=== PATIENT | male | born 1975 | race Caucasian/White ===

== ENCOUNTER 2019-06-01 09:03 | Inpatient (IN) | payer OTHER ==
[2019-06-01] MEDS ORDERED: SODIUM CHLORIDE 0.9% 1000 ML INFUS.BAG IV ONE (09:31)
[2019-06-01] MEDS ORDERED: morphine CARPU-JECT 4 MG/1 ML DISP.SYRIN IVPUSH ONE (09:31)
[2019-06-01] MEDS ORDERED: ACETAMINOPHEN 1000 MG/100 ML VIAL (NON FORMULARY) IVPB ONE (09:31)
[2019-06-01] MEDS ORDERED: ONDANSETRON 4 MG/2 ML VIAL IVPUSH ONE (09:31)
[2019-06-01] MEDS ORDERED: FAMOTIDINE 20 MG/50 ML IVPB 20 MG/50 ML MG IVPB ONE ×2 (09:45→09:59)
[2019-06-01] MEDS ORDERED: ACETAMINOPHEN INJECTION 100 ML IVPB ONE (09:48)
[2019-06-01 09:55] LABS: BASO % 0.9 % (0-2.0); EOS % 3.8 % (0-4.5); HEMATOCRIT 47.1 % (35.4-49); HEMOGLOBIN 15.4 GM/dL (11.7-16.9); LYMPH % 13.3 % (8-40); MCH 27.8 pg (25.7-33.7); MCHC 32.7 g/dl (32.0-35.9); MEAN CELL VOLUME 84.8 fl (80-96); MEAN PLT VOLUME 8.4 fl (7.5-11.1); MONO % 9.2 % (3.8-10.2); NEUT % 72.8 % (42.8-82.8); PLATELET COUNT 396 K/MM3 (134-434); RBC 5.56 M/mm3 (4.00-5.60); RDW 14.6 % (11.9-15.9); WHITE BLOOD COUNT 18.4 K/mm3 (4.0-10.0)
[2019-06-01] MEDS ORDERED: morphine SULFATE 4 MG/ML VIAL ONE (09:59)
[2019-06-01] MEDS ORDERED: ONDANSETRON 4 MG/2 ML VIAL ONE (10:00)
[2019-06-01 10:03] LABS: URINE APPEARANCE CLEAR; URINE BILIRUBIN NEGATIVE (NEGATIVE); URINE COLOR YELLOW; URINE GLUCOSE (UA) NEGATIVE (NEGATIVE); URINE KETONE 1+ (NEGATIVE); URINE LEUK ESTERASE NEGATIVE (NEGATIVE); URINE NITRITE NEGATIVE (NEGATIVE); URINE PROTEIN TRACE (NEGATIVE); URINE UROBILINOGEN 0.2 mg/dL (0.2-1.0)
[2019-06-01 10:21] LABS: ALBUMIN 3.7 g/dl (3.4-5.0); BLOOD UREA NITROGEN 8.6 mg/dL (7-18); CALCIUM 9.3 mg/dL (8.5-10.1); CREATININE 0.9 mg/dL (0.55-1.3); POTASSIUM 4.4 mmol/L (3.5-5.1); TOT PROT 7.9 g/dl (6.4-8.2)
[2019-06-01] MEDS ORDERED: PIPERACILLIN/TAZOB 3.375 GM 3.375 GM in DEXTROSE 5%-WATER - 50 ML IVPB ONE (10:24)
[2019-06-01] MEDS ORDERED: LACTATED RINGERS SOLUTION 1000 ML INFUS.BAG IV ONE (10:25)
[2019-06-01] MEDS ORDERED: PIPERACILLIN/TAZOB 3.375 GM 3.375 GM/50 ML BAG IVPB ONE (10:27)
[2019-06-01 10:31] LABS: INR 1.28 (0.83-1.09); PROTHROMBIN TIME (PATIENT) 15.1 SEC (9.7-13.0)
--- NOTE | 2019-06-01 10:32 | PDOC ---
Documentation entered by Kayla Mcgregor SCRIBE, acting as scribe for Martita Ulloa DO. Martita Ulloa DO: This documentation has been prepared by the Balbir goff Brenda, SCRIBE, under my direction and personally reviewed by me in its entirety. I confirm that the documentation accurately reflects all work, treatment, procedures, and medical decision making performed by me. History of Present Illness - General Chief Complaint: Pain, Acute Stated Complaint: ABD PAIN Time Seen by Provider: 06/01/19 09:18 History Source: Patient Exam Limitations: No Limitations - History of Present Illness Initial Comments: 06/01/19 09:55 The patient is a 44 year old male, with a significant PMH of diverticulitis and NIDDM (stopped taking metformin due to better sugar levels) who presents to the emergency department with 3 days of lower abdominal pain that radiates to his back, which he states is a bout of diverticulitis. As per patient, he has experienced bouts of diverticulitis before, however this time the pain is more severe on the right lower quadrant and hasnt been relieved by a change of diet. He also endorses associative symptoms, such as diaphoresis, shivering and cold sweats, along with dysuria. He also notes notes that his last bowel movement was 3 days ago, he notes trying to take a suppository 2 days ago, but barely anything came out. As per patient, he normally had bouts of diverticulitis once every month, but recently has had it once every 2 months, he notes that his last episode he went to [facility], and was told to follow up with a huc ob but never did. Additionally he notes ending his course of antibiotics earlier than noted, due to alleviation of symptoms, when prescribed for his recent bout of diverticulitis. The patient denies chest pain, shortness of breath, headache and dizziness. Denies vomiting and diarrhea. Denies frequency, urgency and hematuria. Allergies: NKA Past surgical history: Unknown eye surgery Social history: Reports currently using smoking tobacco everyday, and marijuana use. Also notes alcohol use. Denies any other drug use. PCP: Dr. Erickson Lopez Past History - Past Medical History Allergies/Adverse Reactions: Allergies Allergy/AdvReac Type Severity Reaction Status Date / Time No Known Allergies Allergy Verified 06/01/19 09:12 Home Medications: Ambulatory Orders NK [No Known Home Medication] 06/01/19 COPD: No Diabetes: Yes Other medical history: diverticulitis - Immunization History Immunization Up to Date: No - Psycho Social/Smoking Cessation Hx Smoking History: Current every day smoker Have you smoked in the past 12 months: No Information on smoking cessation initiated: No Hx Alcohol Use: Yes Drug/Substance Use Hx: Yes Review of Systems - Review of Systems Able to Perform ROS?: Yes Comments:: 06/01/19 09:55 GENERAL/CONSTITUTIONAL: (+) Chills (+) Diaphoresis (+) Clamminess. No weakness. HEAD, EYES, EARS, NOSE AND THROAT: No change in vision. No ear pain or discharge. No sore throat. CARDIOVASCULAR: No chest pain or shortness of breath. RESPIRATORY: No cough, wheezing, or hemoptysis. GASTROINTESTINAL: (+) Lower abdominal pain,radiates to back. (+) Constipation. No vomiting, diarrhea. GENITOURINARY: (+) Dysuria. No frequency, or change in urination. MUSCULOSKELETAL: No joint or muscle swelling. No neck pain. SKIN: No rash NEUROLOGIC: No headache, vertigo, loss of consciousness, or change in strength/ sensation. ENDOCRINE: No increased thirst. No abnormal weight change. HEMATOLOGIC/LYMPHATIC: No anemia, easy bleeding, or history of blood clots. ALLERGIC/IMMUNOLOGIC: No hives or skin allergy. *Physical Exam - Vital Signs Last Vital Signs Temp Pulse Resp BP Pulse Ox 98.3 F 114 H 18 125/86 98 06/01/19 09:08 06/01/19 09:08 06/01/19 09:08 06/01/19 09:08 06/01/19 09:08 - Physical Exam Comments: 06/01/19 09:56 GENERAL: (+) Diaphoretic. (+) Clammy. Awake, alert, and fully oriented, in no acute distress HEAD: No signs of trauma EYES: PERRLA, EOMI, sclera anicteric, conjunctiva clear ENT: Auricles normal inspection, hearing grossly normal, nares patent, oropharynx clear without exudates. Moist mucosa NECK: Normal ROM, supple, no lymphadenopathy, JVD, or masses LUNGS: Breath sounds equal, clear to auscultation bilaterally. No wheezes, and no crackles HEART: (+) Tachycardic. Regular rate and rhythm, normal S1 and S2, no murmurs, rubs or gallops ABDOMEN: (+) Involuntary guarding on RLQ. (+) Tenderness to palpation on left lower quadrant.(+) Superpubic tenderness to palpation. Soft, normoactive bowel sounds. No rebound. No masses EXTREMITIES: Normal range of motion, no edema. No clubbing or cyanosis. No cords, erythema, or tenderness NEUROLOGICAL: Cranial nerves II through XII grossly intact. Normal speech, normal gait SKIN: Warm, Dry, normal turgor, no rashes or lesions noted. Heart Score/ECG Review - ECG Intrepretation Comment:: 06/01/19 10:30 sinus tach at 101, nl axis, nl interval, no acute st changes, t wave inversions III which are nonspecific ED Treatment Course - LABORATORY CBC & Chemistry Diagram: 06/01/19 09:38 06/01/19 09:38 - ADDITIONAL ORDERS Additional order review: Laboratory Results 06/01/19 06/01/19 06/01/19 09:38 09:38 09:35 Sodium 138 Potassium 4.4 Chloride 100 Carbon Dioxide 29 Anion Gap 9 BUN 8.6 Creatinine 0.9 Est GFR (CKD-EPI)AfAm 121.67 Est GFR (CKD-EPI)NonAf 104.98 Random Glucose 214 H Calcium 9.3 Magnesium 2.2 Total Bilirubin 1.0 AST 8 L ALT 19 Alkaline Phosphatase 64 Total Protein 7.9 Albumin 3.7 Urine Color Urine Appearance Urine pH Ur Specific [place] Urine Protein Urine Glucose (UA) Urine Ketones Urine Blood Urine Nitrite Urine Bilirubin Urine Urobilinogen Ur Leukocyte Esterase Stool Occult Blood Negative 06/01/19 09:35 Sodium Potassium Chloride Carbon Dioxide Anion Gap BUN Creatinine Est GFR (CKD-EPI)AfAm Est GFR (CKD-EPI)NonAf Random Glucose Calcium Magnesium Total Bilirubin AST ALT Alkaline Phosphatase Total Protein Albumin Urine Color Yellow Urine Appearance Clear Urine pH 6.0 Ur Specific [place] 1.015 Urine Protein Trace Urine Glucose (UA) Negative Urine Ketones 1+ H Urine Blood Negative Urine Nitrite Negative Urine Bilirubin Negative Urine Urobilinogen 0.2 Ur Leukocyte Esterase Negative Stool Occult Blood 06/01/19 09:38 RBC 5.56 MCV 84.8 MCHC 32.7 RDW 14.6 MPV 8.4 Neutrophils % 72.8 Lymphocytes % 13.3 Monocytes % 9.2 Eosinophils % 3.8 Basophils % 0.9 - RADIOLOGY Radiology Studies Ordered: Category Date Time Status ABDOMEN & PELVIS CT WITH CONTR [CT] Stat CT Scan 06/01/19 09:31 Ordered CHEST X-RAY PORTABLE* [RAD] Stat Radiology 06/01/19 09:31 Taken - Medications Given in the ED: ED Medications Discontinued Medications Generic Name Dose Route Start Last Admin Trade Name Freq PRN Reason Stop Dose Admin Acetaminophen 1,000 mg 06/01/19 09:31 06/01/19 10:04 Ofirmev Injection - IVPB 06/01/19 09:32 1,000 mg ONCE ONE Administration Famotidine/Sodium Chloride 20 mg in 50 mls @ 100 mls/hr 06/01/19 09:45 10:04 Pepcid 20 Mg Premixed Ivpb - IVPB 06/01/19 10:14 100 mls/hr ONCE ONE Administration Morphine Sulfate 4 mg 06/01/19 09:31 06/01/19 10:03 Morphine Injection - IVPUSH 06/01/19 09:32 4 mg ONCE ONE Administration Ondansetron HCl 4 mg 06/01/19 09:31 06/01/19 10:04 Zofran Injection IVPUSH 06/01/19 09:32 4 mg ONCE ONE Administration Sodium Chloride 1,000 ml 06/01/19 09:31 06/01/19 10:04 Normal Saline - IV 06/01/19 09:32 1,000 ml ONCE ONE Administration Medical Decision Making - Medical Decision Making 06/01/19 10:26 a/p: 44yo male with hx of diverticulitis presents for eval of constipation x 3 days and lower abd pain x 3 days -states similar to prior episodes of diverticulitis -states he did take left over amox at home without improvement -pt arrives tachy, diaphoretic, uncomfortable -pt with RLQ and LLE, suprapubic ttp- voluntary guarding, severe ttp RLQ -pt c/o subjective fevers/chills at home -concern for appy vs diverticulitis -will send labs, lactate, ct abd/pelvis with iv contrast -ivf hydration, pain control -rectal: +tone, sensation, no stool, no masses, no hemorrhoids, no fissures -npo 06/01/19 10:29 pt with wbc 18 will add blood cultures and zosyn 06/01/19 10:38 cxr clear 06/01/19 12:09 ct shows acute sigmoid divertic no wbc in ua inflamm around bladder as well case discussed with Dr. Elmore who will see patient in consult pt with divertic flare q3-4 weeks recently microblog sent to [facility] for admission pt updated on labs and ct findings pain controlled at this time will be admitted for iv abx npo 06/01/19 12:11 I, Dr. Martita Ulloa, DO, attest that this document has been prepared under my direction and personally reviewed by me in its entirety. I further attest, that it accurately reflects all work, treatment, procedures and medical decision -making performed by me. 06/01/19 12:[address] Tiwari from [facility] who accepts pt under dr. redd Discharge - Discharge Information Problems reviewed: Yes Clinical Impression/Diagnosis: Sigmoid diverticulitis Condition: Guarded - Admission Yes - Follow up/Referral Referrals: ON STAFF,NOT [Primary Care Provider] - - Patient Discharge Instructions - Post Discharge Activity
[2019-06-01 10:34] LABS: ACTIVATED PTT 36.4 SECONDS (25.2-36.5)
[2019-06-01] MEDS ORDERED: DOCUSATE SODIUM 100 MG CAPSULE (FP) PO ONE (12:38)
[2019-06-01] MEDS ORDERED: morphine CARPU-JECT 2 MG/1 ML DISP.SYRIN IVPUSH PRN (13:25)
[2019-06-01] MEDS ORDERED: ONDANSETRON 4 MG/2 ML VIAL IVPUSH PRN (13:25)
[2019-06-01] MEDS ORDERED: ACETAMINOPHEN 325 MG TABLET (FP) PO PRN (13:25)
--- NOTE | 2019-06-01 13:38 | HP ---
CHIEF COMPLAINT: abdominal pain PCP: [place] [facility] PCP HISTORY OF PRESENT ILLNESS: Patient is a 44 y/o male with a history of diverticulitis and DM ( not on medical management) who presents for abdominal pain. Patients pain has persisted over a few days and is sharp in the R upper and lower quadrant. Patient had had multiple episodes of this pain in the past. In the past he was hospitalized in the [facility] [place]. he has not followed up with a GI or surgeon for his diverticulitis. Recently he has had a lot of stress with his mother and her treatment for cancer. He notes the flares are concurrent with certain foods, especially spicy foods. Patient has not had a bowel movement in days and has pain with urination. Patient took two days of amoxicilin from home. Patient denies diarrhea, nausea, vomiting, chest pain or shortness of breath. Patient has a grandmother who also used to have similar GI problems. ER course was notable for: (1)ABD/CT L acute sigmoid diverticulitis, possible colovesical fistula (2) (3) Recent Travel: denies PAST MEDICAL HISTORY: diverticulitis and DM ( not on medical management) PAST SURGICAL HISTORY: cornea transplant s/p stigmatism Social History: Smoking: denies Alcohol: denies Drugs: occasional marijuana Allergies No Known Allergies Allergy (Verified 06/01/19 09:12) HOME MEDICATIONS: Home Medications Medication Instructions Recorded NK [No Known Home Medication] 06/01/19 REVIEW OF SYSTEMS CONSTITUTIONAL: Absent: fever, chills, diaphoresis, generalized weakness, malaise, loss of appetite, weight change HEENT: Absent: rhinorrhea, nasal congestion, throat pain, throat swelling, difficulty swallowing, mouth swelling, ear pain, eye pain, visual changes CARDIOVASCULAR: Absent: chest pain, syncope, palpitations, irregular heart rate, lightheadedness , peripheral edema RESPIRATORY: Absent: cough, shortness of breath, dyspnea with exertion, orthopnea, wheezing, stridor, hemoptysis GASTROINTESTINAL:abdominal pain,constipation Absent: abdominal distension, nausea, vomiting, diarrhea, melena, hematochezia GENITOURINARY: dysuria, Absent: frequency, urgency, hesitancy, hematuria, flank pain, genital pain MUSCULOSKELETAL: Absent: myalgia, arthralgia, joint swelling, back pain, neck pain SKIN: Absent: rash, itching, pallor HEMATOLOGIC/IMMUNOLOGIC: Absent: easy bleeding, easy bruising, lymphadenopathy, frequent infections ENDOCRINE: Absent: unexplained weight gain, unexplained weight loss, heat intolerance, cold intolerance NEUROLOGIC: Absent: headache, focal weakness or paresthesias, dizziness, unsteady gait, seizure, mental status changes, bladder or bowel incontinence PSYCHIATRIC: Absent: anxiety, depression, suicidal or homicidal ideation, hallucinations. PHYSICAL EXAMINATION Vital Signs - 24 hr 06/01/19 06/01/19 06/01/19 09:08 10:09 11:31 Temperature 98.3 F 98.3 F Pulse Rate 114 H Pulse Rate [ 94 H Apical] Respiratory 18 19 Rate Blood Pressure 125/86 Blood Pressure 135/88 [Left Arm] O2 Sat by Pulse 98 99 99 Oximetry (%) GENERAL: Awake, alert, and fully oriented, in no acute distress. Obese HEAD: Normal with no signs of trauma. EYES: Pupils equal, round and reactive to light, extraocular movements intact, EARS, NOSE, THROAT: Moist mucous membranes. LUNGS: Breath sounds equal, clear to auscultation bilaterally. No wheezes, and no crackles. HEART: Regular rate and rhythm, normal S1 and S2 . ABDOMEN: Soft, tender to light palpation over RLQ and RUQ, negative rosvings MUSCULOSKELETAL: Normal range of motion at all joints. LOWER EXTREMITIES: 2+ pulses, warm, well-perfused. No calf tenderness. No peripheral edema. SKIN: Warm, dry, normal turgor, no rashes or lesions noted, normal capillary refill. CBC, BMP 06/01/19 09:38 06/01/19 09:38 ASSESSMENT/PLAN: Patient is a 44 y/o male with a history of diverticulitis and DM ( not on medical management) who is admitted for acute sigmoid diverticultis. #Acute diverticulitis - ABD/CT: acute sigmoid diverticulitis, possible colovesical fistula - continue Zosyn - f/u with Dr. Elmore for evaluation - f/u GI - NPO - LR @ 125 - zofran prn for nausea, QTC 433 #dysuria - ? source, 2/2 to reffered pain from abdomen, vs colovesical fistula - f/u Urology to r/o colovesical fistula - UA without any abnormalities #DM - BGM - SS #DVT ppx - heaprin 5,000 q8h FEN - NPO - LR @ 150 Dispo: monitor on med surg Visit type - Emergency Visit Emergency Visit: Yes ED Registration Date: 06/01/19 Care time: The patient presented to the Emergency Department on the above date and was hospitalized for further evaluation of their emergent condition. - New Patient This patient is new to me today: Yes Date on this admission: 06/01/19 - Critical Care Critical Care patient: No ATTENDING PHYSICIAN STATEMENT I saw and evaluated the patient. I reviewed the resident's note and discussed the case with the resident. I agree with the resident's findings and plan as documented. SUBJECTIVE: OBJECTIVE: ASSESSMENT AND PLAN:
[2019-06-01] MEDS ORDERED: MORPHINE SULFATE 2 MG/ML VIAL IVPUSH PRN (13:43)
[2019-06-01 13:44] VITALS: BMI 43.5
[2019-06-01] MEDS: LACTATED RINGERS SOLUTION 1,000 ML IV SCH ×2 (14:30→22:44)
[2019-06-01] MEDS ORDERED: PIPERACILLIN/TAZOB 3.375 GM 3.375 GM in DEXTROSE 5%-WATER - 50 ML IVPB SCH (15:00)
--- NOTE | 2019-06-01 15:04 | PN ---
Teaching Attending Note Name of Resident: Richelle Tiwari ATTENDING PHYSICIAN STATEMENT I saw and evaluated the patient. I reviewed the resident's note and discussed the case with the resident. I agree with the resident's findings and plan as documented. SUBJECTIVE: R sided abdominal pain - no nausea/vomiting/dirrhea/melena/ hematochezia. Reports chills and sweats. OBJECTIVE: Afebrile, Hemodynamically Stable. Comfortable. Last Vital Signs Temp Pulse Resp BP Pulse Ox 97.7 F 88 19 137/81 99 06/01/19 12:11 06/01/19 13:25 06/01/19 12:11 06/01/19 12:11 06/01/19 11:31 HEENT - Atramatic, Normocephalic. HEART - S1, S2, RRR LUNGS - Clear to auscultation ABDOMEN - High BMI. Soft, R sided tenderness ++. Bowel Sounds normal. EXTREMITIES - trace edema, no calf tenderness NEURO - AAO x 3. Tone/Power normal all extremities. Laboratory Results - last 24 hr 06/01/19 06/01/19 06/01/19 09:35 09:35 09:38 WBC RBC Hgb Hct MCV MCH MCHC RDW Plt Count MPV Absolute Neuts (auto) Neutrophils % Lymphocytes % Monocytes % Eosinophils % Basophils % Nucleated RBC % PT with INR 15.10 H INR 1.28 H PTT (Actin FS) 36.4 Sodium Potassium Chloride Carbon Dioxide Anion Gap BUN Creatinine Est GFR (CKD-EPI)AfAm Est GFR (CKD-EPI)NonAf Random Glucose Lactic Acid Calcium Magnesium Total Bilirubin AST ALT Alkaline Phosphatase Creatine Kinase Troponin I Total Protein Albumin Urine Color Yellow Urine Appearance Clear Urine pH 6.0 Ur Specific [place] 1.015 Urine Protein Trace Urine Glucose (UA) Negative Urine Ketones 1+ H Urine Blood Negative Urine Nitrite Negative Urine Bilirubin Negative Urine Urobilinogen 0.2 Ur Leukocyte Esterase Negative Stool Occult Blood Negative 06/01/19 06/01/19 06/01/19 09:38 09:38 09:38 WBC 18.4 H RBC 5.56 Hgb 15.4 Hct 47.1 MCV 84.8 MCH 27.8 MCHC 32.7 RDW 14.6 Plt Count 396 MPV 8.4 Absolute Neuts (auto) 13.4 H Neutrophils % 72.8 Lymphocytes % 13.3 Monocytes % 9.2 Eosinophils % 3.8 Basophils % 0.9 Nucleated RBC % 0 PT with INR INR PTT (Actin FS) Sodium 138 Potassium 4.4 Chloride 100 Carbon Dioxide 29 Anion Gap 9 BUN 8.6 Creatinine 0.9 Est GFR (CKD-EPI)AfAm 121.67 Est GFR (CKD-EPI)NonAf 104.98 Random Glucose 214 H Lactic Acid Calcium 9.3 Magnesium Total Bilirubin 1.0 AST 8 L ALT 19 Alkaline Phosphatase 64 Creatine Kinase 92 Troponin I < 0.02 Total Protein 7.9 Albumin 3.7 Urine Color Urine Appearance Urine pH Ur Specific [place] Urine Protein Urine Glucose (UA) Urine Ketones Urine Blood Urine Nitrite Urine Bilirubin Urine Urobilinogen Ur Leukocyte Esterase Stool Occult Blood 06/01/19 06/01/19 09:38 09:39 WBC RBC Hgb Hct MCV MCH MCHC RDW Plt Count MPV Absolute Neuts (auto) Neutrophils % Lymphocytes % Monocytes % Eosinophils % Basophils % Nucleated RBC % PT with INR INR PTT (Actin FS) Sodium Potassium Chloride Carbon Dioxide Anion Gap BUN Creatinine Est GFR (CKD-EPI)AfAm Est GFR (CKD-EPI)NonAf Random Glucose Lactic Acid 1.6 Calcium Magnesium 2.2 Total Bilirubin AST ALT Alkaline Phosphatase Creatine Kinase Troponin I Total Protein Albumin Urine Color Urine Appearance Urine pH Ur Specific [place] Urine Protein Urine Glucose (UA) Urine Ketones Urine Blood Urine Nitrite Urine Bilirubin Urine Urobilinogen Ur Leukocyte Esterase Stool Occult Blood Current Medications Generic Name Dose Route Start Last Admin Trade Name Freq PRN Reason Stop Dose Admin Acetaminophen 650 mg 06/01/19 13:25 Tylenol - PO Q4H PRN PAIN LEVEL 4 - 6 Heparin Sodium (Porcine) 5,000 unit 06/01/19 18:00 Heparin - SQ Q8H-IV KRISTEN Lactated Ringer's 1,000 mls @ 125 mls/hr 06/01/19 13:30 Lactated Ringers Solution IV ASDIR KRISTEN Piperacillin Sod/Tazobactam 50 mls @ 100 mls/hr 06/01/19 15:00 Sod 3.375 gm/ Dextrose IVPB Q6H-IV KRISTEN Protocol Insulin Aspart 1 vial 06/01/19 16:30 Novolog Vial Sliding Scale - SQ ACHS KRISTEN Protocol Morphine Sulfate 1 mg 06/01/19 13:43 Morphine Sulfate IVPUSH Q4H PRN PAIN LEVEL 6-10 Ondansetron HCl 4 mg 06/01/19 13:25 Zofran Injection IVPUSH Q6H PRN NAUSEA Home Medications Medication Instructions Recorded NK [No Known Home Medication] 06/01/19 ASSESSMENT AND PLAN: 44 year old Male with history of recurrent Diverticulitis, DM 2 (diet controlled ), s/p corneal transplant, presents with R sided abdominal pain. CT A/P - Acute sigmoid diverticulitis. inflammatory changes extend to superior and inferior aspect of the urinary bladder where a possible colovesicular fistula may be present. 1. Acute Diverticulitis Afebrile, Hemodynamicaly Stable. Leukocytosis, WBC 18.4 FOBT neg Blood cx pending Started on IV Zosyn Surgery consulted. GI consulted for recurrent Diverticulitis and need for Colonoscopy at some point. NPO for now, IV hydration. 2. Dysuria ? related to possible colovesicular Fistula on CT UA neg Urine Cx requested. Urology consulted. 3. DM 2 - previously on Metformin, now diet controlled. A1c requested. Maintain on Novolog sliding scale. DVT Px - Heparin SQ
[2019-06-01] MEDS ORDERED: KETOROLAC TROMETHAMINE 30 MG/1 ML VIAL IVPUSH ONE (17:33)
[2019-06-01] MEDS: INSULIN SLIDING SCALE (NOVOLOG) 1 VIAL SQ SCH ×2 (17:53→22:06)
[2019-06-01] MEDS: HEPARIN NA (PORCINE) 5,000 UNITS/ML 1ML VIAL SQ SCH (18:30)
[2019-06-01] MEDS: MORPHINE SULFATE 2 MG/ML VIAL IVPUSH PRN (22:43)
[2019-06-02] MEDS: HEPARIN NA (PORCINE) 5,000 UNITS/ML 1ML VIAL SQ SCH ×3 (02:04→18:46)
[2019-06-02] MEDS: MORPHINE SULFATE 2 MG/ML VIAL IVPUSH PRN ×2 (02:41→07:47)
[2019-06-02] MEDS: INSULIN SLIDING SCALE (NOVOLOG) 1 VIAL SQ SCH ×4 (06:18→22:42)
--- NOTE | 2019-06-02 07:54 | CON.GI ---
Consult - History of Present Illness History of Present Illness: GI CONSULT DICTATED - NPO / IVF'S / ABX - SURGERY AND UROLOGY EVALUATION SEE CONSULT FOR FULL DETAILS. - Alcohol/Substance Use Hx Alcohol Use: Yes - Smoking History Smoking history: Current every day smoker Have you smoked in the past 12 months: No Home Medications - Allergies Allergies/Adverse Reactions: Allergies Allergy/AdvReac Type Severity Reaction Status Date / Time No Known Allergies Allergy Verified 06/01/19 09:12 - Home Medications Home Medications: Ambulatory Orders NK [No Known Home Medication] 06/01/19 Physical Exam-GI Vital Signs: Vital Signs Temperature 98.5 F 06/02/19 07:46 Pulse Rate 101 H 06/02/19 07:46 Respiratory Rate 20 06/02/19 07:46 Blood Pressure 146/82 06/02/19 07:46 O2 Sat by Pulse Oximetry (%) 99 06/01/19 11:31 Labs: CBC, BMP 06/01/19 09:38 06/01/19 09:38 INR, PTT INR 1.28 (0.83-1.09) H 06/01/19 09:38
--- NOTE | 2019-06-02 09:38 | CONSULT ---
- Consultation REQUESTING PROVIDER: Laila TURCIOS CONSULT REQUEST: We have been asked to surgically evaluate this patient for abdominal pain. PCP:Clemente Malone MD HISTORY OF PRESENT ILLNESS: SOUTH who is a 44 y/o/ male who presented w/ generalized amd > LLQ abdominal pain; he has a h/o diverticulitis in the past once txed as an inpatient at [facility] # years ago; he may have had other subclinical/less severe attacks as well; he presented here b/o pain that was progressive over # days; a w/u was done and he was admitted and consultation was requested. He denies any other GI/ c/o's h/e does state that the main may be more intense over his bladder; he denies pneumoturia. PMHx: none PSHx: none Home Medications Medication Instructions Recorded NK [No Known Home Medication] 06/01/19 Allergies Allergy/AdvReac Type Severity Reaction Status Date / Time No Known Allergies Allergy Verified 06/01/19 09:12 REVIEW OF SYSTEMS: CONSTITUTIONAL: Absent: fever, chills, diaphoresis, generalized weakness, malaise, loss of appetite, weight change CARDIOVASCULAR: Absent: chest pain, syncope, palpitations, irregular heart rate, lightheadedness , peripheral edema RESPIRATORY: Absent: cough, shortness of breath, dyspnea with exertion, wheezing, stridor, hemoptysis GASTROINTESTINAL: Present: abdominal pain, abdominal distension, nausea, vomiting, constipation, GENITOURINARY: Absent: dysuria, frequency, urgency, hesitancy, hematuria, flank pain, genital pain MUSCULOSKELETAL: Absent: myalgia, arthralgia, joint swelling, back pain, neck pain SKIN: Absent: rash, itching, pallor HEMATOLOGIC/IMMUNOLOGIC: Absent: easy bleeding, easy bruising, lymphadenopathy NEUROLOGIC: Absent: headache, focal weakness, paresthesias, dizziness, unsteady gait, seizure, mental status changes, bladder or bowel incontinence PSYCHIATRIC: Absent: anxiety, depression, suicidal or homicidal ideation, hallucinations. PHYSICAL EXAM: GENERAL: Awake, alert, and fully oriented, in no acute distress. HEAD: Normal with no signs of trauma. EYES: PERRL, sclera anicteric, conjunctiva clear. NECK: Normal ROM, supple without lymphadenopathy, JVD, or masses. ABDOMEN: Soft, mimimally tender diffusely but greater in the LLQ and suprapubic areas, not distended, normoactive bowel sounds, voluntary guarding, no rebound, no masses. No organomegaly. No hernias MUSCULOSKELETAL: Normal ROM at all joints. No bony deformities or tenderness. No CVA tenderness. UPPER EXTREMITIES: 2+ pulses, warm, well-perfused. No cyanosis. Cap refill <2 seconds. No peripheral edema. LOWER EXTREMITIES: 2+ pulses, warm, well-perfused. No calf tenderness. No peripheral edema. NEUROLOGICAL: Normal speech, gait not observed. PSYCH: Cooperative. Good eye contact. Appropriate mood and affect. SKIN: Warm, dry, normal turgor, no rashes or lesions noted. Vital Signs Temperature 98.5 F 06/02/19 07:46 Pulse Rate 101 H 06/02/19 07:46 Respiratory Rate 20 06/02/19 07:46 Blood Pressure 146/82 06/02/19 07:46 O2 Sat by Pulse Oximetry (%) 99 06/01/19 11:31 Lab Results WBC 18.4 K/mm3 (4.0-10.0) H 06/01/19 09:38 RBC 5.56 M/mm3 (4.00-5.60) 06/01/19 09:38 Hgb 15.4 GM/dL (11.7-16.9) 06/01/19 09:38 Hct 47.1 % (35.4-49) 06/01/19 09:38 MCV 84.8 fl (80-96) 06/01/19 09:38 MCHC 32.7 g/dl (32.0-35.9) 06/01/19 09:38 RDW 14.6 % (11.9-15.9) 06/01/19 09:38 Plt Count 396 K/MM3 (134-434) 06/01/19 09:38 Sodium 138 mmol/L (136-145) 06/01/19 09:38 Potassium 4.4 mmol/L (3.5-5.1) 06/01/19 09:38 Chloride 100 mmol/L (98-107) 06/01/19 09:38 Carbon Dioxide 29 mmol/L (21-32) 06/01/19 09:38 Anion Gap 9 MMOL/L (8-16) 06/01/19 09:38 BUN 8.6 mg/dL (7-18) 06/01/19 09:38 Creatinine 0.9 mg/dL (0.55-1.3) 06/01/19 09:38 Random Glucose 214 mg/dL (74-106) H 06/01/19 09:38 Calcium 9.3 mg/dL (8.5-10.1) 06/01/19 09:38 INR 1.28 (0.83-1.09) H 06/01/19 09:38 CT scan a/p reviewed IMP: acute sigmoid diverticulitis (recurrent) by history PLAN: NPO/aggressive IV hydration/IVAB's and pain control and serial abdominal exams; I d/w the patient if he does not respond to the conservative tx. plan he will most likely have to undergo a [place] procedure; would get blood cultures ; will f/u. He will need f/u imaging during this hospital stay and a more intense w/u for a possible colo-vesical fistula. Low Elmore MD FACS
[2019-06-02] MEDS ORDERED: PIPERACILLIN/TAZOBACTAM 3.375 GM VIAL IVPB ONE ×2 (10:41→22:08)
[2019-06-02] MEDS ORDERED: DEXTROSE 5%-WATER - 50 ML IVPB ONE ×2 (10:41→22:08)
[2019-06-02] MEDS: KETOROLAC TROMETHAMINE 30 MG/1 ML VIAL IVPUSH PRN ×2 (10:42→22:33)
[2019-06-02] MEDS: PIPERACILLIN/TAZOB 3.375 GM 3.375 GM in DEXTROSE 5%-WATER - 50 ML IVPB SCH ×3 (10:50→22:18)
[2019-06-02 11:16] LABS: BASO % 0.7 % (0-2.0); EOS % 2.9 % (0-4.5); HEMATOCRIT 38.5 % (35.4-49); HEMOGLOBIN 13.1 GM/dL (11.7-16.9); LYMPH % 14.4 % (8-40); MCH 28.6 pg (25.7-33.7); MCHC 33.9 g/dl (32.0-35.9); MEAN CELL VOLUME 84.3 fl (80-96); MEAN PLT VOLUME 8.2 fl (7.5-11.1); MONO % 9.5 % (3.8-10.2); NEUT % 72.5 % (42.8-82.8); PLATELET COUNT 328 K/MM3 (134-434); RBC 4.57 M/mm3 (4.00-5.60); RDW 14.3 % (11.9-15.9); WHITE BLOOD COUNT 12.3 K/mm3 (4.0-10.0)
[2019-06-02 11:47] LABS: BILIRUBIN,TOTAL 0.8 mg/dL (0.2-1); BLOOD UREA NITROGEN 7.6 mg/dL (7-18); CALCIUM 8.7 mg/dL (8.5-10.1); CREATININE 0.7 mg/dL (0.55-1.3); MAGNESIUM 2.2 mg/dL (1.8-2.4); PHOSPHOROUS 3.3 mg/dL (2.5-4.9); POTASSIUM 4.6 mmol/L (3.5-5.1); TOT PROT 6.4 g/dl (6.4-8.2)
[2019-06-02] MEDS: LACTATED RINGERS SOLUTION 1,000 ML IV SCH ×3 (12:19→22:20)
--- NOTE | 2019-06-02 12:44 | CON.ID ---
Consult - History of Present Illness History of Present Illness: 44 y.o. male with PMH of DM (not on medication) and Diverticulitis presents with c/o severe abd pain and constipation x 5 days. States he had similar symptoms 2 yrs ago and was hospitalized at [facility] and treated for diverticulitis. He has had multiple similar episodes since which would resolve after 2 days, occasionally taking amoxicillin he has at home. Has not followed up with GI as outpt. Pt denies and recent n/v episodes but has been feeling "clammy" with chills. He took 4 days of amoxicillin without relief of symptoms. In the ER he was afebrile but labs notable for leukocytosis (18K). Pt c/o pressure-like pain during urination but no burning. His U/A and Urine cultures are negative. Currently patient is feeling better and wbc decreased to 12K while on antibiotics, remains afebrile. Surgical evaluation noted. 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: Alzheimer's, CVA, Dementia, Migraine, Multiple Sclerosis, Peripheral Neuropathy, Parkinson's, Seizure, Syncope, TIA, Vertigo, Other Cardio/Vascular: No: AFIB, Aneurysm, Aortic Insufficiency, Aortic Stenosis, CAD , CHF, Deep Vein Thrombosis, HTN, Hyperlipdemia, CO, Mitral Insufficiency, Mitral Stenosis, Murmur, Pulmonary Hypertension, Other Pulmonary: No: Asthma, Bronchitis, Cancer, COPD, O2 Dependent, Pneumonia, Previously Intubated, Pulmonary Embolus, Pulmonary Fibrosis, Sleep Apnea, Other Gastrointestinal: Yes: Diverticulitis Hepatobiliary: No: Cirrhosis, Cholelithiasis, Cholecystitis, Choledocholithiasis , Hepatitis A, Hepatitis B, Hepatitis C, Other Renal/: No: Renal Failure, Renal Inusuff, BPH, Cancer, Hematuria, Hemodialysis , Neurogenic Bladder, Renal Calculi, UTI, Other Heme/Onc: No: Anemia, B12 Deficiency, Bleeding Disorder, Cancer, Current Chemotherapy, Current Radiation Therapy, Hemochromatosis, Hypercoaguable State, Myeloproliferative Synd, Sickle Cell Disease, Sickle Cell Trait, Thrombocytopenia, Other Infectious Disease: No: AIDS, C-Diff, Herpes Zoster, HIV, MRSA, STD's, Tuberculosis, VREF, Other Psych: No: Addictions, Anxiety, Bipolar, Depression, Panic, Psychosis, Schizophrenia, Other Rheumatology: No: Fibromyalgia, Gout, Lupus, Rheumatoid Arthritis, Sarcoidosis, Vasculitis, Other ENT: No: Allergic Rhinitis, Sinusitis, Other Endocrine: Yes: Diabetes Mellitus Dermatology: No: Basal Cell, Cellulitis, Eczema, Melanoma, Psoriasis, Squamous Cell, Other - Alcohol/Substance Use Hx Alcohol Use: Yes - Smoking History Smoking history: Current every day smoker Have you smoked in the past 12 months: No Home Medications - Allergies Allergies/Adverse Reactions: Allergies Allergy/AdvReac Type Severity Reaction Status Date / Time No Known Allergies Allergy Verified 06/01/19 09:12 - Home Medications Home Medications: Ambulatory Orders NK [No Known Home Medication] 06/01/19 Review of Systems - Review of Systems Constitutional: reports: No Symptoms Eyes: reports: No Symptoms HENT: reports: No Symptoms Neck: reports: No Symptoms Cardiovascular: reports: No Symptoms Respiratory: reports: No Symptoms Gastrointestinal: reports: Abdominal Pain Genitourinary: reports: Other (suprapubic pressure) Musculoskeletal: denies: No Symptoms, Back Pain, Crepitus, Decreased ROM, Extremity Pain, Joint Pain, Joint Swelling, Muscle Pain, Muscle Cramps, Muscle Weakness, Other Integumentary: denies: No Symptoms, Blister, Bruising, Change in Color, Eczema, Erythema, Incision, Lesions, Lump, Pallor, Pruritis, Rash, Wound, Other Neurological: denies: No Symptoms, Change in LOC, Change in Speech, Confusion, Dizziness, Headache, Incoordination, Numbness, Parasthesia, Pre-Existing Deficit , Seizure, Syncope, Tremors, Unsteady Gait, Weakness, Other Endocrine: denies: No Symptoms, Excessive Sweating, Flushing, Increased Hunger, Increased Thirst, Intolerance to Cold, Intolerance to Heat, Unexplained Weight Gain, Unexplained Weight Loss, Other Hematology/Lymphatic: denies: No Symptoms, Easily Bruised, Excessive Bleeding, Swollen Glands, Other Psychiatric: denies: No Symptoms, Altered Sleep Pattern, Anxiety, Depression, Hallucinations, Panic, Paranoia, Suicidal, Other Physical Exam Vital Signs: Vital Signs Temperature 98.5 F 06/02/19 07:46 Pulse Rate 101 H 06/02/19 07:46 Respiratory Rate 20 06/02/19 07:46 Blood Pressure 146/82 06/02/19 07:46 O2 Sat by Pulse Oximetry (%) 99 06/01/19 11:31 Constitutional: Yes: No Distress, Calm Eyes: Yes: WNL HENT: Yes: Atraumatic Neck: Yes: Supple Cardiovascular: Yes: Regular Rate and Rhythm Respiratory: Yes: CTA Bilaterally Gastrointestinal: Yes: Normal Bowel Sounds, Soft, Tenderness (Rt abd/ LLQ/ suprapubic) Musculoskeletal: Yes: WNL Extremities: Yes: WNL Edema: No Integumentary: Yes: WNL Neurological: Yes: Alert, Oriented Labs: CBC, BMP 06/02/19 10:33 06/02/19 10:33 Laboratory Tests 06/01/19 06/01/19 06/01/19 09:35 09:35 09:38 WBC RBC Hgb Hct MCV MCH MCHC RDW Plt Count MPV Absolute Neuts (auto) Neutrophils % Lymphocytes % Monocytes % Eosinophils % Basophils % Nucleated RBC % PT with INR 15.10 H INR 1.28 H PTT (Actin FS) 36.4 Sodium Potassium Chloride Carbon Dioxide Anion Gap BUN Creatinine Est GFR (CKD-EPI)AfAm Est GFR (CKD-EPI)NonAf POC Glucometer Random Glucose Hemoglobin A1c % Lactic Acid Calcium Phosphorus Magnesium Total Bilirubin AST ALT Alkaline Phosphatase Creatine Kinase Troponin I Total Protein Albumin Urine Color Yellow Urine Appearance Clear Urine pH 6.0 Ur Specific [place] 1.015 Urine Protein Trace Urine Glucose (UA) Negative Urine Ketones 1+ H Urine Blood Negative Urine Nitrite Negative Urine Bilirubin Negative Urine Urobilinogen 0.2 Ur Leukocyte Esterase Negative Stool Occult Blood Negative 06/01/19 06/01/19 06/01/19 09:38 09:38 09:38 WBC 18.4 H RBC 5.56 Hgb 15.4 Hct 47.1 MCV 84.8 MCH 27.8 MCHC 32.7 RDW 14.6 Plt Count 396 MPV 8.4 Absolute Neuts (auto) 13.4 H Neutrophils % 72.8 Lymphocytes % 13.3 Monocytes % 9.2 Eosinophils % 3.8 Basophils % 0.9 Nucleated RBC % 0 PT with INR INR PTT (Actin FS) Sodium 138 Potassium 4.4 Chloride 100 Carbon Dioxide 29 Anion Gap 9 BUN 8.6 Creatinine 0.9 Est GFR (CKD-EPI)AfAm 121.67 Est GFR (CKD-EPI)NonAf 104.98 POC Glucometer Random Glucose 214 H Hemoglobin A1c % Lactic Acid Calcium 9.3 Phosphorus Magnesium Total Bilirubin 1.0 AST 8 L ALT 19 Alkaline Phosphatase 64 Creatine Kinase 92 Troponin I < 0.02 Total Protein 7.9 Albumin 3.7 Urine Color Urine Appearance Urine pH Ur Specific [place] Urine Protein Urine Glucose (UA) Urine Ketones Urine Blood Urine Nitrite Urine Bilirubin Urine Urobilinogen Ur Leukocyte Esterase Stool Occult Blood 06/01/19 06/01/19 06/01/19 09:38 09:39 20:29 WBC RBC Hgb Hct MCV MCH MCHC RDW Plt Count MPV Absolute Neuts (auto) Neutrophils % Lymphocytes % Monocytes % Eosinophils % Basophils % Nucleated RBC % PT with INR INR PTT (Actin FS) Sodium Potassium Chloride Carbon Dioxide Anion Gap BUN Creatinine Est GFR (CKD-EPI)AfAm Est GFR (CKD-EPI)NonAf POC Glucometer 136 Random Glucose Hemoglobin A1c % Lactic Acid 1.6 Calcium Phosphorus Magnesium 2.2 Total Bilirubin AST ALT Alkaline Phosphatase Creatine Kinase Troponin I Total Protein Albumin Urine Color Urine Appearance Urine pH Ur Specific [place] Urine Protein Urine Glucose (UA) Urine Ketones Urine Blood Urine Nitrite Urine Bilirubin Urine Urobilinogen Ur Leukocyte Esterase Stool Occult Blood 06/02/19 06/02/19 06/02/19 06:17 10:33 10:33 WBC 12.3 H RBC 4.57 Hgb 13.1 Hct 38.5 D MCV 84.3 MCH 28.6 MCHC 33.9 RDW 14.3 Plt Count 328 MPV 8.2 Absolute Neuts (auto) 8.9 H Neutrophils % 72.5 Lymphocytes % 14.4 Monocytes % 9.5 Eosinophils % 2.9 Basophils % 0.7 Nucleated RBC % 0 PT with INR INR PTT (Actin FS) Sodium 139 Potassium 4.6 Chloride 104 Carbon Dioxide 30 Anion Gap 5 L BUN 7.6 Creatinine 0.7 Est GFR (CKD-EPI)AfAm 134.91 Est GFR (CKD-EPI)NonAf 116.40 POC Glucometer 134 Random Glucose 144 H Hemoglobin A1c % Lactic Acid Calcium 8.7 Phosphorus 3.3 Magnesium 2.2 Total Bilirubin 0.8 AST 7 L ALT 16 Alkaline Phosphatase 48 Creatine Kinase Troponin I Total Protein 6.4 Albumin 3.0 L Urine Color Urine Appearance Urine pH Ur Specific [place] Urine Protein Urine Glucose (UA) Urine Ketones Urine Blood Urine Nitrite Urine Bilirubin Urine Urobilinogen Ur Leukocyte Esterase Stool Occult Blood 06/02/19 06/02/19 10:33 12:15 WBC RBC Hgb Hct MCV MCH MCHC RDW Plt Count MPV Absolute Neuts (auto) Neutrophils % Lymphocytes % Monocytes % Eosinophils % Basophils % Nucleated RBC % PT with INR INR PTT (Actin FS) Sodium Potassium Chloride Carbon Dioxide Anion Gap BUN Creatinine Est GFR (CKD-EPI)AfAm Est GFR (CKD-EPI)NonAf POC Glucometer 146 Random Glucose Hemoglobin A1c % 9.2 H Lactic Acid Calcium Phosphorus Magnesium Total Bilirubin AST ALT Alkaline Phosphatase Creatine Kinase Troponin I Total Protein Albumin Urine Color Urine Appearance Urine pH Ur Specific [place] Urine Protein Urine Glucose (UA) Urine Ketones Urine Blood Urine Nitrite Urine Bilirubin Urine Urobilinogen Ur Leukocyte Esterase Stool Occult Blood Blood cultures neg 24hr Urine Cx neg Imaging - Results Cat Scan: Report Reviewed Problem List - Problems (1) Sigmoid diverticulitis Code(s): K57.32 - DVTRCLI OF LG INT W/O PERFORATION OR ABSCESS W/O BLEEDING Assessment/Plan 44 y.o. male with PMH of DM (not on medication) and Diverticulitis presents with c/o severe abd pain and constipation x 5 days Acute sigmoid diverticulitis Possible colovesicular fistula DM -- continue Zosyn empirically -- wbc trending down, afebrile -- Surgery following -- Blood cultures neg 24h, Urine Cx neg -- needs tight glycemic control -- pain control Continue monitor Will follow Thank you
--- NOTE | 2019-06-02 15:33 | PN ---
Progress Note (short form) - Note Progress Note: SUBJECTIVE: R sided abdominal pain ongoing - no nausea/vomiting/diarrhea/melena/ hematochezia. No fever/chills. OBJECTIVE: Afebrile, Hemodynamically Stable. Ynconfotable due to abdominal pain. Last Vital Signs Temp Pulse Resp BP Pulse Ox 98.6 F 85 20 147/92 99 06/02/19 13:00 06/02/19 13:00 06/02/19 13:00 06/02/19 13:00 06/01/19 11:31 HEART - S1, S2, RRR LUNGS - Clear to auscultation ABDOMEN - High BMI. Soft, R sided tenderness ++. Bowel Sounds normal. EXTREMITIES - trace edema, no calf tenderness NEURO - AAO x 3. Tone/Power normal all extremities. Laboratory Results - last 24 hr 06/01/19 06/02/19 06/02/19 20:29 06:17 10:33 WBC 12.3 H RBC 4.57 Hgb 13.1 Hct 38.5 D MCV 84.3 MCH 28.6 MCHC 33.9 RDW 14.3 Plt Count 328 MPV 8.2 Absolute Neuts (auto) 8.9 H Neutrophils % 72.5 Lymphocytes % 14.4 Monocytes % 9.5 Eosinophils % 2.9 Basophils % 0.7 Nucleated RBC % 0 Sodium Potassium Chloride Carbon Dioxide Anion Gap BUN Creatinine Est GFR (CKD-EPI)AfAm Est GFR (CKD-EPI)NonAf POC Glucometer 136 134 Random Glucose Hemoglobin A1c % Calcium Phosphorus Magnesium Total Bilirubin AST ALT Alkaline Phosphatase Total Protein Albumin 06/02/19 06/02/19 06/02/19 10:33 10:33 12:15 WBC RBC Hgb Hct MCV MCH MCHC RDW Plt Count MPV Absolute Neuts (auto) Neutrophils % Lymphocytes % Monocytes % Eosinophils % Basophils % Nucleated RBC % Sodium 139 Potassium 4.6 Chloride 104 Carbon Dioxide 30 Anion Gap 5 L BUN 7.6 Creatinine 0.7 Est GFR (CKD-EPI)AfAm 134.91 Est GFR (CKD-EPI)NonAf 116.40 POC Glucometer 146 Random Glucose 144 H Hemoglobin A1c % 9.2 H Calcium 8.7 Phosphorus 3.3 Magnesium 2.2 Total Bilirubin 0.8 AST 7 L ALT 16 Alkaline Phosphatase 48 Total Protein 6.4 Albumin 3.0 L Current Medications Generic Name Dose Route Start Last Admin Trade Name Freq PRN Reason Stop Dose Admin Acetaminophen 650 mg 06/01/19 13:25 Tylenol - PO Q4H PRN PAIN LEVEL 4 - 6 Heparin Sodium (Porcine) 5,000 unit 06/01/19 18:00 06/02/19 09:57 Heparin - SQ 5,000 unit Q8H-IV KRISTEN Administration Lactated Ringer's 1,000 mls @ 125 mls/hr 06/01/19 13:30 06/02/19 12:19 Lactated Ringers Solution IV 125 mls/hr ASDIR KRISTEN Administration Piperacillin Sod/Tazobactam 50 mls @ 100 mls/hr 06/02/19 10:30 06/02/19 10:50 Sod 3.375 gm/ Dextrose IVPB 100 mls/hr Q6H-IV KRISTEN Administration Insulin Aspart 1 vial 06/01/19 16:30 06/02/19 12:15 Novolog Vial Sliding Scale - SQ Not Given ACHS KRISTEN Protocol Ketorolac Tromethamine 30 mg 06/02/19 10:17 06/02/19 10:42 Toradol Injection - IVPUSH 06/07/19 10:16 30 mg Q8H PRN Administration PAIN LEVEL 4 - 6 Morphine Sulfate 2 mg 06/01/19 17:33 06/02/19 07:47 Morphine Sulfate IVPUSH 2 mg Q4H PRN Administration PAIN LEVEL 7 - 10 Ondansetron HCl 4 mg 06/01/19 13:25 Zofran Injection IVPUSH Q6H PRN NAUSEA Home Medications Medication Instructions Recorded NK [No Known Home Medication] 06/01/19 ASSESSMENT AND PLAN: 44 year old Male with history of recurrent Diverticulitis, DM 2 (diet controlled ), s/p corneal transplant, presents with R sided abdominal pain. CT A/P - Acute sigmoid diverticulitis, inflammatory changes extend to superior and inferior aspect of the urinary bladder where a possible colovesicular fistula may be present. 1. Acute Diverticulitis Afebrile, Hemodynamicaly Stable. Leukocytosis, resolving FOBT neg Blood cx negative Continue IV Zosyn GI consulted for recurrent Diverticulitis and need for Colonoscopy at some point. NPO, IV hydration. Surgery following. 2. Dysuria ? related to possible colovesicular Fistula on CT Urine Cx negative. Urology consulted for eval for possible colovesicular fistula. 3. DM 2 - Uncontrolled. A1c 9.2. Previously on Metformin, now not on any anti- hyperglycemic meds. Maintain on Novolog sliding scale. DVT Px - Heparin SQ Visit type - Emergency Visit Emergency Visit: Yes ED Registration Date: 06/01/19 Care time: The patient presented to the Emergency Department on the above date and was hospitalized for further evaluation of their emergent condition. - New Patient This patient is new to me today: No - Critical Care Critical Care patient: No - Discharge Referral Referred to [facility] Med P.C.: No
--- NOTE | 2019-06-02 16:52 | EKG ---
Test Reason : Blood Pressure : / mmHG Vent. Rate : 101 BPM Atrial Rate : 101 BPM P-R Int : 126 ms QRS Dur : 086 ms QT Int : 332 ms P-R-T Axes : 062 049 031 degrees QTc Int : 430 ms SINUS TACHYCARDIA OTHERWISE NORMAL ECG NO PREVIOUS ECGS AVAILABLE Confirmed by COMPA ROCHA MD ([id number]) on 06/02/2019 4:52:23 PM Referred By: Confirmed By:COMPA ROCHA MD
--- NOTE | 2019-06-02 16:55 | CONS ---
DATE OF CONSULTATION: DATE OF DICTATION: 06/02/2019 The patient is a 44-year-old man with a past medical history significant for multiple episodes of diverticulitis. Just this past year, since September, he admits to having 3 bouts of diverticulitis. He states he suffers chronic constipation. Normally he tries to stay home and put himself on a clear liquid diet and take some leftover antibiotics with the hope of having relief of his pain; however, the pain worsened during this episode, prompting him to come to the emergency room for further evaluation. He does state that he has had previous episodes over the past years similar to this one. While at home, he states he did not have bowel movement for 3 to 4 days. He developed sweats and fever and right-sided and periumbilical abdominal pain without any radiation. He denies any melena, hematochezia, hematemesis, nausea, vomiting. He has never had a colonoscopy. 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 Past medical and surgical history as listed in the HPI. ALLERGIES: No known drug allergies. HOME MEDICATIONS: Denies. SOCIAL HISTORY: Smokes occasionally, does not drink or use drugs. FAMILY HISTORY: No history of GI or gynecological malignancy. REVIEW OF SYSTEMS: As per the HPI. PHYSICAL EXAMINATION: Vital Signs: Temperature 98, pulse 100, blood pressure 146/82, respiration 12, oxygen saturation 98% on room air. General: No acute distress. HEENT: Anicteric sclerae. Cardiovascular: S1, S2, regular rate and rhythm. Lungs: Bilaterally clear to auscultation. Abdomen: Tender in the right lower quadrant and mid abdomen. Obese. No rebound or guarding. Extremities: No edema. LABORATORY DATA: White blood cell count on admission 18, currently 12, hemoglobin 13, hematocrit 38, platelet count 328, INR 1.28. Sodium 139, potassium 4.6, BUN 7.6, creatinine 0.7, hemoglobin A1c 9.2, lactic acid 1.6, total bilirubin 0.8, AST 7, ALT 16, alkaline phosphatase 48. Urine: 1+ ketones, stool for occult blood is negative. Abdomen and pelvis CT scan performed in the emergency room revealed acute sigmoid diverticulitis, inflammatory changes extend to the superior anterior aspect of the urinary bladder, possible colovesical fistula may be present. The proximal aspect of the appendix was normal and the prostate is enlarged. IMPRESSION: Complicated diverticulitis. RECOMMENDATION: N.p.o., IV fluids, continue with the Zosyn. Recommend surgery and urology evaluation for further management of the complicated diverticulitis. He will likely need surgical resection, considering he may have a fistula and this is his third episode in the past year. The patient will be followed by the GI service. CORDELL MOON DO [id number]
[2019-06-03] MEDS ORDERED: PIPERACILLIN/TAZOBACTAM 3.375 GM VIAL IVPB ONE ×4 (01:32→21:05)
[2019-06-03] MEDS ORDERED: DEXTROSE 5%-WATER - 50 ML IVPB ONE ×2 (01:33→21:05)
[2019-06-03] MEDS: PIPERACILLIN/TAZOB 3.375 GM 3.375 GM in DEXTROSE 5%-WATER - 50 ML IVPB SCH ×4 (02:45→21:13)
[2019-06-03] MEDS: HEPARIN NA (PORCINE) 5,000 UNITS/ML 1ML VIAL SQ SCH ×3 (02:45→17:52)
[2019-06-03] MEDS: INSULIN SLIDING SCALE (NOVOLOG) 1 VIAL SQ SCH ×4 (06:53→21:03)
[2019-06-03] MEDS: LACTATED RINGERS SOLUTION 1,000 ML IV SCH ×2 (07:04→14:38)
--- NOTE | 2019-06-03 07:39 | CONSULT ---
Consult Consult Specialty:: urology Reason for Consultation:: dysuria/diverticulitis - History of Present Illness Chief Complaint: dysuria/diverticulitis History of Present Illness: Patient with history of acute diverticulitis. Patient had a cat scan which shows perivesical inflammation suggesting a colovesical fistula. Patient does have episodes of very mild dysuria. Patient denies urinary frequency, urgency, nocturia, gross hematuria, uti's, pneumoturia, or passage of particles in his urine. 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: Alzheimer's, CVA, Dementia, Migraine, Multiple Sclerosis, Peripheral Neuropathy, Parkinson's, Seizure, Syncope, TIA, Vertigo, Other Cardio/Vascular: No: AFIB, Aneurysm, Aortic Insufficiency, Aortic Stenosis, CAD , CHF, Deep Vein Thrombosis, HTN, Hyperlipdemia, TN, Mitral Insufficiency, Mitral Stenosis, Murmur, Pulmonary Hypertension, Other Pulmonary: No: Asthma, Bronchitis, Cancer, COPD, O2 Dependent, Pneumonia, Previously Intubated, Pulmonary Embolus, Pulmonary Fibrosis, Sleep Apnea, Other Gastrointestinal: Yes: Diverticulitis Hepatobiliary: No: Cirrhosis, Cholelithiasis, Cholecystitis, Choledocholithiasis , Hepatitis A, Hepatitis B, Hepatitis C, Other Renal/: No: Renal Failure, Renal Inusuff, BPH, Cancer, Hematuria, Hemodialysis , Neurogenic Bladder, Renal Calculi, UTI, Other Infectious Disease: No: AIDS, C-Diff, Herpes Zoster, HIV, MRSA, STD's, Tuberculosis, VREF, Other Psych: No: Addictions, Anxiety, Bipolar, Depression, Panic, Psychosis, Schizophrenia, Other Rheumatology: No: Fibromyalgia, Gout, Lupus, Rheumatoid Arthritis, Sarcoidosis, Vasculitis, Other ENT: No: Allergic Rhinitis, Sinusitis, Other Endocrine: Yes: Diabetes Mellitus Dermatology: No: Basal Cell, Cellulitis, Eczema, Melanoma, Psoriasis, Squamous Cell, Other - Alcohol/Substance Use Hx Alcohol Use: Yes - Smoking History Smoking history: Current every day smoker Have you smoked in the past 12 months: No Home Medications - Allergies Allergies/Adverse Reactions: Allergies Allergy/AdvReac Type Severity Reaction Status Date / Time No Known Allergies Allergy Verified 06/01/19 09:12 - Home Medications Home Medications: Ambulatory Orders NK [No Known Home Medication] 06/01/19 Physical Exam Vital Signs: Vital Signs Temperature 99.0 F 09/30/19 06:22 Pulse Rate 91 H 06/03/19 06:22 Respiratory Rate 20 06/03/19 06:22 Blood Pressure 146/88 06/03/19 06:22 O2 Sat by Pulse Oximetry (%) 97 06/02/19 21:00 Constitutional: Yes: Well Nourished, No Distress, Calm Eyes: Yes: WNL, Conjunctiva Clear, EOM Intact HENT: Yes: WNL, Atraumatic Neck: Yes: WNL, Supple, Trachea Midline Cardiovascular: Yes: WNL Respiratory: Yes: WNL, Regular Gastrointestinal: Yes: Normal Bowel Sounds (no tenderness noted), Soft ...Rectal Exam: Yes: WNL Renal/: Yes: WNL Musculoskeletal: Yes: WNL Extremities: Yes: WNL Integumentary: Yes: WNL Neurological: Yes: WNL Labs: CBC, BMP 06/02/19 10:33 06/02/19 10:33 Imaging - Results Cat Scan: Report Reviewed Assessment/Plan impression diverticulitis dysuria question of colovesical fistula on CT plan The patient has no clinical indication of a colovescical fistula. Patient has no urinary symptoms or UTI with a normal UA. will follow up as outpatient observe dysuria as it is very mild and not iterfering with the quality of life
--- NOTE | 2019-06-03 08:33 | PN ---
Progress Note (short form) - Note Progress Note: Pt states that he feels much better this am. He had 2 bowel movements, yesterday and today. Small, non-bloody, formed stool. His abd pain is improved, teated with toradol x2 yesterday. His pain level is around 4 this am. Vital Signs Period Temp Pulse Resp BP Sys/Ferrari Pulse Ox Last 24 Hr 98.4 F-99.1 F 85-94 20-20 127-150/70-92 97 GEN: A&0x3, NAD ABD: obese, mild right sided tenderness to palpation at umbilical level. No rebound or guarding. CBC, BMP 06/02/19 10:33 06/02/19 10:33 Microbiology 06/01/19 09:35 Urine - Urine Clean Catch Urine Culture - Final NO GROWTH OBTAINED 06/01/19 10:44 Blood - Peripheral Venous Blood Culture - Preliminary NO GROWTH OBTAINED AFTER 24 HOURS, INCUBATION TO CONTINUE FOR 4 DAYS. 06/01/19 10:41 Blood - Peripheral Venous Blood Culture - Preliminary NO GROWTH OBTAINED AFTER 24 HOURS, INCUBATION TO CONTINUE FOR 4 DAYS. A/P: 44 yo male with diverticular disease D/w Dr. Elmore and recommend to continue npo/iv hydration. The patient is clinically better but he has had several episodes of most likely diverticulitis over the past several months. He generally self limits his diet and has improvements. 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 Although he is clinically better today, we recommend to continue npo and monitor the patient. Continue IV abx. Possibly clears tomorrow if he continues to improve and then will need outpt follow up with GI.
[2019-06-03] MEDS ORDERED: DEXTROSE 5%-WATER - 100 ML IVPB ONE (08:49)
[2019-06-03 10:16] LABS: BASO % 1.1 % (0-2.0); EOS % 3.9 % (0-4.5); HEMATOCRIT 42.1 % (35.4-49); HEMOGLOBIN 13.7 GM/dL (11.7-16.9); LYMPH % 18.3 % (8-40); MCH 27.8 pg (25.7-33.7); MCHC 32.6 g/dl (32.0-35.9); MEAN CELL VOLUME 85.2 fl (80-96); MEAN PLT VOLUME 8.3 fl (7.5-11.1); MONO % 8.5 % (3.8-10.2); NEUT % 68.2 % (42.8-82.8); PLATELET COUNT 366 K/MM3 (134-434); RBC 4.94 M/mm3 (4.00-5.60); RDW 14.3 % (11.9-15.9)
[2019-06-03 10:34] LABS: ALBUMIN 3.1 g/dl (3.4-5.0); BILIRUBIN,TOTAL 0.7 mg/dL (0.2-1); CALCIUM 8.9 mg/dL (8.5-10.1); CREATININE 0.8 mg/dL (0.55-1.3); MAGNESIUM 2.2 mg/dL (1.8-2.4); PHOSPHOROUS 3.7 mg/dL (2.5-4.9); POTASSIUM 4.2 mmol/L (3.5-5.1)
--- NOTE | 2019-06-03 12:18 | PN ---
Progress Note, Physician History of Present Illness: starting to feel better no new issues abd pain better - Current Medication List Current Medications: Active Medications Acetaminophen (Tylenol -) 650 mg PO Q4H PRN PRN Reason: PAIN LEVEL 4 - 6 Heparin Sodium (Porcine) (Heparin -) 5,000 unit SQ Q8H-IV KRISTEN Last Admin: 06/03/19 09:39 Dose: 5,000 unit Lactated Ringer's (Lactated Ringers Solution) 1,000 mls @ 125 mls/hr IV ASDIR KRISTEN Last Admin: 06/03/19 07:04 Dose: 125 mls/hr Piperacillin Sod/Tazobactam (Sod 3.375 gm/ Dextrose) 50 mls @ 100 mls/hr IVPB Q6H-IV KRISTEN Last Admin: 06/03/19 09:39 Dose: 100 mls/hr Insulin Aspart (Novolog Vial Sliding Scale -) 1 vial SQ ACHS [facility]; Protocol Last Admin: 06/03/19 11:17 Dose: Not Given Ketorolac Tromethamine (Toradol Injection -) 30 mg IVPUSH Q8H PRN PRN Reason: PAIN LEVEL 4 - 6 Stop: 06/07/19 10:16 Last Admin: 06/02/19 22:33 Dose: 30 mg Morphine Sulfate (Morphine Sulfate) 2 mg IVPUSH Q4H PRN PRN Reason: PAIN LEVEL 7 - 10 Last Admin: 06/02/19 07:47 Dose: 2 mg Ondansetron HCl (Zofran Injection) 4 mg IVPUSH Q6H PRN PRN Reason: NAUSEA - Objective Vital Signs: Vital Signs Temperature 98.4 F 06/03/19 10:00 Pulse Rate 89 06/03/19 10:00 Respiratory Rate 20 06/03/19 10:00 Blood Pressure 134/76 06/03/19 10:00 O2 Sat by Pulse Oximetry (%) 97 06/02/19 21:00 Constitutional: Yes: Calm, Mild Distress Cardiovascular: Yes: S1, S2 Respiratory: Yes: Regular, CTA Bilaterally Gastrointestinal: Yes: Soft, Hypoactive Bowel Sounds, Tenderness Musculoskeletal: Yes: WNL Extremities: Yes: WNL Neurological: Yes: Alert, Oriented Psychiatric: Yes: Alert, Oriented Labs: CBC, BMP 06/03/19 09:44 06/03/19 09:44 INR, PTT INR 1.28 (0.83-1.09) H 06/01/19 09:38 Assessment/Plan Problem List - Problems (1) Sigmoid diverticulitis Code(s): K57.32 - DVTRCLI OF LG INT W/O PERFORATION OR ABSCESS W/O BLEEDING Assessment/Plan 44 y.o. male with PMH of DM (not on medication) and Diverticulitis presents with c/o severe abd pain and constipation x 5 days Acute sigmoid diverticulitis Possible colovesicular fistula DM -- continue Zosyn --monitor abd pain
--- NOTE | 2019-06-03 14:08 | PN ---
Teaching Attending Note Name of Resident: Odessa Bonner ATTENDING PHYSICIAN STATEMENT I saw and evaluated the patient. I reviewed the resident's note and discussed the case with the resident. I agree with the resident's findings and plan as documented. SUBJECTIVE: R sided abdominal pain improving - no nausea/vomiting/diarrhea/ melena/hematochezia. No fever/chills. OBJECTIVE: Afebrile, Tmax 99, Hemodynamically Stable. More comfortable. Last Vital Signs Temp Pulse Resp BP Pulse Ox 98.4 F 89 20 134/76 97 06/03/19 10:00 06/03/19 10:00 06/03/19 10:06/03/19 10:06/02/19 21:00 HEART - S1, S2, RRR LUNGS - Clear to auscultation ABDOMEN - High BMI. Soft, mild R sided tenderness. Bowel Sounds normal. EXTREMITIES - trace edema, no calf tenderness NEURO - AAO x 3. Tone/Power normal all extremities. Laboratory Results - last 24 hr 06/02/19 06/02/19 06/03/19 17:43 22:42 06:49 WBC RBC Hgb Hct MCV MCH MCHC RDW Plt Count MPV Absolute Neuts (auto) Neutrophils % Lymphocytes % Monocytes % Eosinophils % Basophils % Nucleated RBC % Sodium Potassium Chloride Carbon Dioxide Anion Gap BUN Creatinine Est GFR (CKD-EPI)AfAm Est GFR (CKD-EPI)NonAf POC Glucometer 125 135 131 Random Glucose Calcium Phosphorus Magnesium Total Bilirubin AST ALT Alkaline Phosphatase Total Protein Albumin 06/03/19 06/03/19 06/03/19 09:44 09:44 11:14 WBC 12.0 H RBC 4.94 Hgb 13.7 Hct 42.1 MCV 85.2 MCH 27.8 MCHC 32.6 RDW 14.3 Plt Count 366 MPV 8.3 Absolute Neuts (auto) 8.2 H Neutrophils % 68.2 Lymphocytes % 18.3 D Monocytes % 8.5 Eosinophils % 3.9 Basophils % 1.1 Nucleated RBC % 0 Sodium 143 Potassium 4.2 Chloride 107 Carbon Dioxide 28 Anion Gap 7 L BUN 9.0 Creatinine 0.8 Est GFR (CKD-EPI)AfAm 127.70 Est GFR (CKD-EPI)NonAf 110.18 POC Glucometer 145 Random Glucose 129 H Calcium 8.9 Phosphorus 3.7 Magnesium 2.2 Total Bilirubin 0.7 AST 9 L ALT 15 Alkaline Phosphatase 49 Total Protein 7.0 Albumin 3.1 L Current Medications Generic Name Dose Route Start Last Admin Trade Name Freq PRN Reason Stop Dose Admin Acetaminophen 650 mg 06/01/19 13:25 Tylenol - PO Q4H PRN PAIN LEVEL 4 - 6 Heparin Sodium (Porcine) 5,000 unit 06/01/19 18:00 06/03/19 09:39 Heparin - SQ 5,000 unit Q8H-IV KRISTEN Administration Lactated Ringer's 1,000 mls @ 125 mls/hr 06/01/19 13:30 06/03/19 07:04 Lactated Ringers Solution IV 125 mls/hr ASDIR KRISTEN Administration Piperacillin Sod/Tazobactam 50 mls @ 100 mls/hr 06/02/19 10:30 06/03/19 09:39 Sod 3.375 gm/ Dextrose IVPB 100 mls/hr Q6H-IV KRISTEN Administration Insulin Aspart 1 vial 06/01/19 16:30 06/03/19 11:17 Novolog Vial Sliding Scale - SQ Not Given ACHS [facility] Protocol Ketorolac Tromethamine 30 mg 06/02/19 10:17 06/02/19 22:33 Toradol Injection - IVPUSH 06/07/19 10:16 30 mg Q8H PRN Administration PAIN LEVEL 4 - 6 Morphine Sulfate 2 mg 06/01/19 17:33 06/02/19 07:47 Morphine Sulfate IVPUSH 2 mg Q4H PRN Administration PAIN LEVEL 7 - 10 Ondansetron HCl 4 mg 06/01/19 13:25 Zofran Injection IVPUSH Q6H PRN NAUSEA Home Medications Medication Instructions Recorded NK [No Known Home Medication] 06/01/19 ASSESSMENT AND PLAN: 44 year old Male with history of recurrent Diverticulitis, DM 2 (diet controlled ), s/p corneal transplant, presents with R sided abdominal pain. CT A/P - Acute sigmoid diverticulitis, inflammatory changes extend to superior and inferior aspect of the urinary bladder where a possible colovesicular fistula may be present. 1. Acute Diverticulitis Afebrile, Hemodynamicaly Stable. Leukocytosis, resolving FOBT neg Blood cx negative Continue IV Zosyn GI consulted for recurrent Diverticulitis and need for Colonoscopy at some point. NPO, IV hydration. GI/Surgery following. 2. Dysuria ? related to possible colovesicular Fistula on CT Urine Cx negative. Urology consulted - no evidence of fistula or UTI - for out-patient urology follow up. 3. DM 2 - Uncontrolled. A1c 9.2. Previously on Metformin, now not on any anti- hyperglycemic meds. Maintain on Novolog sliding scale. Will need to resume Metformin on discharge with PCP follow up. DVT Px - Heparin SQ
--- NOTE | 2019-06-03 14:19 | PN ---
Progress Note (short form) - Note Progress Note: GI f/u No new events. Patient reports abdominal pain is suprapubic Seen by surgery and urology, the latter of which does not think there is a colovesicular fistula Denies pneumaturia and fecaluria Vital Signs Temp 98.4 F 06/03/19 10:00 Pulse 89 06/03/19 10:00 Resp 20 06/03/19 10:00 BP 134/76 06/03/19 10:00 Pulse Ox 97 06/02/19 21:00 NAD soft ttp suprapubic CBC, BMP 06/03/19 09:44 06/03/19 09:44 CT reviewed Impression: Recurrent acute sigmoid diverticulitis Continue IV abx If defervesces, will need colonoscopy in 4-6 weeks; if not, may need [place] procedure as an inpatient -- discussed in detail with patient, he agrees and understands
--- NOTE | 2019-06-03 14:23 | PN ---
Physical Exam: SUBJECTIVE: Patient seen and examined. He reports much improved RLQ abdominal pain 4/10. He had one bowel movement yesterday and today which were both normal in consistency and color. He denies nausea, vomiting, chills, and fever. OBJECTIVE: Vital Signs Period Temp Pulse Resp BP Sys/Ferrari Pulse Ox Last 24 Hr 98.4 F-99.1 F 89-94 20-20 127-150/70-90 97 GENERAL: The patient is awake, alert, and fully oriented, in no acute distress. HEAD: Normal with no signs of trauma. EYES: PERRL, extraocular movements intact, sclera anicteric, conjunctiva clear. No ptosis. ENT: Ears normal, nares patent, moist mucous membranes. NECK: Trachea midline, full range of motion, supple. LUNGS: Breath sounds equal, clear to auscultation bilaterally, no wheezes, no crackles, no accessory muscle use. HEART: Regular rate and rhythm, S1, S2 without murmur, rub or gallop. ABDOMEN: Soft, RLQ tender to palpation, nondistended, normoactive bowel sounds EXTREMITIES: 2+ pulses, warm, well-perfused, no edema. NEUROLOGICAL: Cranial nerves II through XII grossly intact. Normal speech, gait not observed. PSYCH: Normal mood, normal affect. SKIN: Warm, dry, normal turgor, no rashes or lesions noted Laboratory Results - last 24 hr 06/02/19 06/02/19 06/03/19 17:43 22:42 06:49 WBC RBC Hgb Hct MCV MCH MCHC RDW Plt Count MPV Absolute Neuts (auto) Neutrophils % Lymphocytes % Monocytes % Eosinophils % Basophils % Nucleated RBC % Sodium Potassium Chloride Carbon Dioxide Anion Gap BUN Creatinine Est GFR (CKD-EPI)AfAm Est GFR (CKD-EPI)NonAf POC Glucometer 125 135 131 Random Glucose Calcium Phosphorus Magnesium Total Bilirubin AST ALT Alkaline Phosphatase Total Protein Albumin 06/03/19 06/03/19 06/03/19 09:44 09:44 11:14 WBC 12.0 H RBC 4.94 Hgb 13.7 Hct 42.1 MCV 85.2 MCH 27.8 MCHC 32.6 RDW 14.3 Plt Count 366 MPV 8.3 Absolute Neuts (auto) 8.2 H Neutrophils % 68.2 Lymphocytes % 18.3 D Monocytes % 8.5 Eosinophils % 3.9 Basophils % 1.1 Nucleated RBC % 0 Sodium 143 Potassium 4.2 Chloride 107 Carbon Dioxide 28 Anion Gap 7 L BUN 9.0 Creatinine 0.8 Est GFR (CKD-EPI)AfAm 127.70 Est GFR (CKD-EPI)NonAf 110.18 POC Glucometer 145 Random Glucose 129 H Calcium 8.9 Phosphorus 3.7 Magnesium 2.2 Total Bilirubin 0.7 AST 9 L ALT 15 Alkaline Phosphatase 49 Total Protein 7.0 Albumin 3.1 L Active Medications Generic Name Dose Route Start Last Admin Trade Name Freq PRN Reason Stop Dose Admin Acetaminophen 650 mg 06/01/19 13:25 Tylenol - PO Q4H PRN PAIN LEVEL 4 - 6 Heparin Sodium (Porcine) 5,000 unit 06/01/19 18:00 06/03/19 09:39 Heparin - SQ 5,000 unit Q8H-IV KRISTEN Administration Lactated Ringer's 1,000 mls @ 125 mls/hr 06/01/19 13:30 06/03/19 07:04 Lactated Ringers Solution IV 125 mls/hr ASDIR KRISTEN Administration Piperacillin Sod/Tazobactam 50 mls @ 100 mls/hr 06/02/19 10:30 06/03/19 09:39 Sod 3.375 gm/ Dextrose IVPB 100 mls/hr Q6H-IV KRISTEN Administration Insulin Aspart 1 vial 06/01/19 16:30 06/03/19 11:17 Novolog Vial Sliding Scale - SQ Not Given ACHS KRISTEN Protocol Ketorolac Tromethamine 30 mg 06/02/19 10:17 06/02/19 22:33 Toradol Injection - IVPUSH 06/07/19 10:16 30 mg Q8H PRN Administration PAIN LEVEL 4 - 6 Morphine Sulfate 2 mg 06/01/19 17:33 06/02/19 07:47 Morphine Sulfate IVPUSH 2 mg Q4H PRN Administration PAIN LEVEL 7 - 10 Ondansetron HCl 4 mg 06/01/19 13:25 Zofran Injection IVPUSH Q6H PRN NAUSEA ASSESSMENT/PLAN: Mr. Shah is a 44y/o male with history of diverticulitis and DM (not currently on metformin) who presents with sharp abdominal pain with constipation x [address] showed acute sigmoid diverticulitis. #acute diverticulitis Pt reports having intermittent flare ups over the last 3 years. He has had increase in frequency this year (3 total). He has not had colonoscopy prior. CT abd showed acute sigmoid diverticulitis with inflammatory changes superior and inferior aspects of bladder, cannot rule out colo-vesicular fistula. No SBO or prostate enlargement. Minimal dysuria. -NPO -IV fluids LR 125 -toradol 30mg Q8 PRN -morphine 2 Q4 PRN -Zosyn day 2 -surgery - treat with abx, will need [place] procedure if not improving -GI - will need outpt colonoscopy in 4-6 weeks if symptoms are improved -urology- not concerned now for fistula, f/u outpt #DM, not currently on medication A1C 9.2. Pt was on metformin previously but stopped because he reports BG was normal. -SSI -BGM -consider restarting metformin upon discharge DVT Ppx heparin FEN NPO monitor Visit type - Emergency Visit Emergency Visit: Yes ED Registration Date: 06/01/19 Care time: The patient presented to the Emergency Department on the above date and was hospitalized for further evaluation of their emergent condition. - New Patient This patient is new to me today: Yes Date on this admission: 06/03/19 - Critical Care Critical Care patient: No - Discharge Referral Referred to [facility] Med P.C.: No ATTENDING PHYSICIAN STATEMENT I saw and evaluated the patient. I reviewed the resident's note and discussed the case with the resident. I agree with the resident's findings and plan as documented. SUBJECTIVE: OBJECTIVE: ASSESSMENT AND PLAN:
[2019-06-03] MEDS: KETOROLAC TROMETHAMINE 30 MG/1 ML VIAL IVPUSH PRN (21:25)
[2019-06-04] MEDS ORDERED: DEXTROSE 5%-WATER - 50 ML IVPB ONE ×4 (01:43→21:23)
[2019-06-04] MEDS ORDERED: PIPERACILLIN/TAZOBACTAM 3.375 GM VIAL IVPB ONE ×4 (01:43→21:23)
[2019-06-04] MEDS: PIPERACILLIN/TAZOB 3.375 GM 3.375 GM in DEXTROSE 5%-WATER - 50 ML IVPB SCH ×4 (01:59→21:31)
[2019-06-04] MEDS: LACTATED RINGERS SOLUTION 1,000 ML IV SCH ×4 (02:00→19:40)
[2019-06-04] MEDS: HEPARIN NA (PORCINE) 5,000 UNITS/ML 1ML VIAL SQ SCH ×3 (02:00→18:20)
[2019-06-04] MEDS: INSULIN SLIDING SCALE (NOVOLOG) 1 VIAL SQ SCH ×4 (06:15→21:31)
--- NOTE | 2019-06-04 07:01 | PN ---
Physical Exam: SUBJECTIVE: Patient seen and examined. He reports improved abdominal pain (2/10) . He denies nausea, vomiting, diarrhea. He has had daily normal bowel movements. OBJECTIVE: Vital Signs Period Temp Pulse Resp BP Sys/Ferrari Pulse Ox Last 24 Hr 98.0 F-98.4 F 76-89 20-20 126-148/76-94 98 GENERAL: The patient is awake, alert, and fully oriented, in no acute distress. HEAD: Normal with no signs of trauma. EYES: PERRL, extraocular movements intact, sclera anicteric, conjunctiva clear. No ptosis. ENT: Ears normal, nares patent, moist mucous membranes. NECK: Trachea midline, full range of motion, supple. LUNGS: Breath sounds equal, clear to auscultation bilaterally, no wheezes, no crackles, no accessory muscle use. HEART: Regular rate and rhythm, S1, S2 without murmur, rub or gallop. ABDOMEN: Soft, RLQ tender to deep palpation, nondistended, normoactive bowel sounds EXTREMITIES: 2+ pulses, warm, well-perfused, no edema. NEUROLOGICAL: Cranial nerves II through XII grossly intact. Normal speech, gait not observed. PSYCH: Normal mood, normal affect. SKIN: Warm, dry, normal turgor, no rashes or lesions noted Laboratory Results - last 24 hr 06/03/19 06/03/19 06/03/19 09:44 09:44 11:14 WBC 12.0 H RBC 4.94 Hgb 13.7 Hct 42.1 MCV 85.2 MCH 27.8 MCHC 32.6 RDW 14.3 Plt Count 366 MPV 8.3 Absolute Neuts (auto) 8.2 H Neutrophils % 68.2 Lymphocytes % 18.3 D Monocytes % 8.5 Eosinophils % 3.9 Basophils % 1.1 Nucleated RBC % 0 Sodium 143 Potassium 4.2 Chloride 107 Carbon Dioxide 28 Anion Gap 7 L BUN 9.0 Creatinine 0.8 Est GFR (CKD-EPI)AfAm 127.70 Est GFR (CKD-EPI)NonAf 110.18 POC Glucometer 145 Random Glucose 129 H Calcium 8.9 Phosphorus 3.7 Magnesium 2.2 Total Bilirubin 0.7 AST 9 L ALT 15 Alkaline Phosphatase 49 Total Protein 7.0 Albumin 3.1 L 06/03/19 06/03/19 06/04/19 17:42 21:01 06:14 WBC RBC Hgb Hct MCV MCH MCHC RDW Plt Count MPV Absolute Neuts (auto) Neutrophils % Lymphocytes % Monocytes % Eosinophils % Basophils % Nucleated RBC % Sodium Potassium Chloride Carbon Dioxide Anion Gap BUN Creatinine Est GFR (CKD-EPI)AfAm Est GFR (CKD-EPI)NonAf POC Glucometer 116 129 150 Random Glucose Calcium Phosphorus Magnesium Total Bilirubin AST ALT Alkaline Phosphatase Total Protein Albumin Active Medications Generic Name Dose Route Start Last Admin Trade Name Freq PRN Reason Stop Dose Admin Acetaminophen 650 mg 06/01/19 13:25 Tylenol - PO Q4H PRN PAIN LEVEL 4 - 6 Heparin Sodium (Porcine) 5,000 unit 06/01/19 18:00 06/04/19 02:00 Heparin - SQ Not Given Q8H-IV KRISTEN Lactated Ringer's 1,000 mls @ 125 mls/hr 06/01/19 13:30 06/04/19 02:00 Lactated Ringers Solution IV 125 mls/hr ASDIR KRISTEN Administration Piperacillin Sod/Tazobactam 50 mls @ 100 mls/hr 06/02/19 10:30 06/04/19 01:59 Sod 3.375 gm/ Dextrose IVPB 100 mls/hr Q6H-IV KRISTEN Administration Insulin Aspart 1 vial 06/01/19 16:30 06/04/19 06:15 Novolog Vial Sliding Scale - SQ Not Given ACHS KRISTEN Protocol Ketorolac Tromethamine 30 mg 06/02/19 10:17 06/03/19 21:25 Toradol Injection - IVPUSH 06/07/19 10:16 30 mg Q8H PRN Administration PAIN LEVEL 4 - 6 Morphine Sulfate 2 mg 06/01/19 17:33 06/02/19 07:47 Morphine Sulfate IVPUSH 2 mg Q4H PRN Administration PAIN LEVEL 7 - 10 Ondansetron HCl 4 mg 06/01/19 13:25 Zofran Injection IVPUSH Q6H PRN NAUSEA ASSESSMENT/PLAN: Mr. Shah is a 44y/o male with history of diverticulitis and DM (not currently on metformin) who presents with sharp abdominal pain with constipation x [address] showed acute sigmoid diverticulitis. #recurrent acute sigmoid diverticulitis Pt reports having intermittent flare ups over the last 3 years. He has had increase in frequency this year. He has not had colonoscopy prior. CT abd showed acute sigmoid diverticulitis with inflammatory changes superior and inferior aspects of bladder, cannot rule out colo-vesicular fistula. No SBO or prostate enlargement. Blood culture negative. -introduce clear liquids -IV fluids LR 125 -toradol 30mg Q8 PRN -morphine 2 Q4 PRN -Zosyn day 3 -surgery - repeat CT in 2 days -GI - will need outpt colonoscopy in 4-6 weeks if symptoms are improved -urology- CT not concerning for fistula, will need outpt follow up #dysuria UA leuk esterase and nitrite negative. No bubbles or fecal matter in urine. Urine culture negative. -follow up urology outpatient #DM, not currently on medication A1C 9.2. Pt was on metformin previously but stopped because he reports BG was normal. -SSI -BGM -consider restarting metformin upon discharge -follow up PCP DVT Ppx heparin FEN clear liquids monitor Visit type - Emergency Visit Emergency Visit: Yes ED Registration Date: 06/01/19 Care time: The patient presented to the Emergency Department on the above date and was hospitalized for further evaluation of their emergent condition. - New Patient This patient is new to me today: No - Critical Care Critical Care patient: No - Discharge Referral Referred to [facility] Med P.C.: No ATTENDING PHYSICIAN STATEMENT I saw and evaluated the patient. I reviewed the resident's note and discussed the case with the resident. I agree with the resident's findings and plan as documented. SUBJECTIVE: OBJECTIVE: ASSESSMENT AND PLAN:
--- NOTE | 2019-06-04 07:56 | PN ---
Progress Note (short form) - Note Progress Note: Patient being followed for diverticulitis Pt states that he feels fine. He has had several BMs over the past few days with no pain. His abd pain is mostly resolved at this time. He denies any new or worsening symptoms including CP,SOB, Fever, Chills, nausea or vomiting. He is awaiting his follow up Abdominal CT. Vital Signs Temp 98.1 F 06/04/19 05:49 Pulse 76 06/04/19 05:49 Resp 20 06/04/19 05:49 BP 148/78 06/04/19 05:49 Pulse Ox 98 06/03/19 21:00 Intake & Output 06/03/19 06/03/19 06/04/19 11:59 23:59 11:59 Intake Total 0216 957 7112 Balance 5023 980 8199 Intake: IV 1500 1000 Lactated Ringers Solution 1500 1000 1,000 ml @ 125 mls/hr IV ASDIR KRISTEN Rx#: [id number] IVPB 100 200 Oral 200 Other: Voiding Method Toilet Toilet # Unmeasured Voids Void 2 2 Bowel Movement No # Bowel Movements 2 PE: GEN: A&0x3, NAD ABD: obese, minimal right sided tenderness to palpation at umbilical level. No rebound or guarding. Microbiology 06/01/19 10:41 Blood - Peripheral Venous Blood Culture - Preliminary NO GROWTH OBTAINED AFTER 48 HOURS, INCUBATION TO CONTINUE FOR 3 DAYS. Urine Test Results Urine Color Yellow 06/01/19 09:35 Urine Appearance Clear 06/01/19 09:35 Urine pH 6.0 (5.0-8.0) 06/01/19 09:35 Ur Specific [place] 1.015 (1.010-1.035) 06/01/19 09:35 Urine Protein Trace (NEGATIVE) 06/01/19 09:35 Urine Glucose (UA) Negative (NEGATIVE) 06/01/19 09:35 Urine Ketones 1+ (NEGATIVE) H 06/01/19 09:35 Urine Blood Negative (NEGATIVE) 06/01/19 09:35 Urine Nitrite Negative (NEGATIVE) 06/01/19 09:35 Urine Bilirubin Negative (NEGATIVE) 06/01/19 09:35 Ur Leukocyte Esterase Negative (NEGATIVE) 06/01/19 09:35 Problem List - Problems (1) Sigmoid diverticulitis Assessment/Plan: A/P: 44 yo male with diverticular disease. The patient is clinically better but he has had several episodes of most likely diverticulitis over the past several months. He generally self limits his diet and has improvements. He was in the process of being treated by a [employer]ician, he has never had a colonscopy in the past. -Start clears this morning -IV ABX -OOB as tolerated encourage ambulation -DVT and GI prophylaxis -Encourage daily IS -RPT Abdominal scan Thrusday Evaluation and plan discussed with Dr Elmore Code(s): K57.32 - DVTRCLI OF LG INT W/O PERFORATION OR ABSCESS W/O BLEEDING
[2019-06-04 08:41] LABS: BASO % 1.6 % (0-2.0); EOS % 5.6 % (0-4.5); HEMATOCRIT 40.2 % (35.4-49); HEMOGLOBIN 13.7 GM/dL (11.7-16.9); LYMPH % 22.1 % (8-40); MCH 28.6 pg (25.7-33.7); MCHC 34.1 g/dl (32.0-35.9); MEAN CELL VOLUME 83.8 fl (80-96); MEAN PLT VOLUME 8.5 fl (7.5-11.1); MONO % 8.5 % (3.8-10.2); NEUT % 62.2 % (42.8-82.8); PLATELET COUNT 385 K/MM3 (134-434); RBC 4.79 M/mm3 (4.00-5.60); RDW 14.5 % (11.9-15.9); WHITE BLOOD COUNT 10.8 K/mm3 (4.0-10.0)
[2019-06-04 08:58] LABS: CALCIUM 8.9 mg/dL (8.5-10.1); POTASSIUM 4.3 mmol/L (3.5-5.1)
--- NOTE | 2019-06-04 11:27 | PN ---
Progress Note, Physician History of Present Illness: starting to feel better no new issues abd pain better - Current Medication List Current Medications: Active Medications Acetaminophen (Tylenol -) 650 mg PO Q4H PRN PRN Reason: PAIN LEVEL 4 - 6 Heparin Sodium (Porcine) (Heparin -) 5,000 unit SQ Q8H-IV KRISTEN Last Admin: 06/04/19 10:00 Dose: 5,000 unit Lactated Ringer's (Lactated Ringers Solution) 1,000 mls @ 125 mls/hr IV ASDIR KRISTEN Last Admin: 06/04/19 09:56 Dose: 125 mls/hr Piperacillin Sod/Tazobactam (Sod 3.375 gm/ Dextrose) 50 mls @ 100 mls/hr IVPB Q6H-IV KRISTEN Last Admin: 06/04/19 09:55 Dose: 100 mls/hr Insulin Aspart (Novolog Vial Sliding Scale -) 1 vial SQ [facility]; Protocol Last Admin: 06/04/19 06:15 Dose: Not Given Ketorolac Tromethamine (Toradol Injection -) 30 mg IVPUSH Q8H PRN PRN Reason: PAIN LEVEL 4 - 6 Stop: 06/07/19 10:16 Last Admin: 06/03/19 21:25 Dose: 30 mg Morphine Sulfate (Morphine Sulfate) 2 mg IVPUSH Q4H PRN PRN Reason: PAIN LEVEL 7 - 10 Last Admin: 06/02/19 07:47 Dose: 2 mg Ondansetron HCl (Zofran Injection) 4 mg IVPUSH Q6H PRN PRN Reason: NAUSEA - Objective Vital Signs: Vital Signs Temperature 98.1 F 06/04/19 05:49 Pulse Rate 76 06/04/19 05:49 Respiratory Rate 20 06/04/19 05:49 Blood Pressure 148/78 06/04/19 05:49 O2 Sat by Pulse Oximetry (%) 98 06/03/19 21:00 Constitutional: Yes: Calm, Mild Distress Cardiovascular: Yes: Regular Rate and Rhythm Respiratory: Yes: Regular, CTA Bilaterally Gastrointestinal: Yes: Soft, Hypoactive Bowel Sounds Musculoskeletal: Yes: WNL Extremities: Yes: WNL Neurological: Yes: Alert, Oriented Psychiatric: Yes: Alert, Oriented Labs: CBC, BMP 06/04/19 06:52 06/04/19 06:52 INR, PTT INR 1.28 (0.83-1.09) H 06/01/19 09:38 Assessment/Plan Problem List - Problems (1) Sigmoid diverticulitis Code(s): K57.32 - DVTRCLI OF LG INT W/O PERFORATION OR ABSCESS W/O BLEEDING Assessment/Plan 44 y.o. male with PMH of DM (not on medication) and Diverticulitis presents with c/o severe abd pain and constipation x 5 days Acute sigmoid diverticulitis Possible colovesicular fistula DM -- continue Zosyn --monitor abd pain
--- NOTE | 2019-06-04 13:08 | PN ---
Teaching Attending Note Name of Resident: Odessa Bonner ATTENDING PHYSICIAN STATEMENT I saw and evaluated the patient. I reviewed the resident's note and discussed the case with the resident. I agree with the resident's findings and plan as documented. SUBJECTIVE:asymptomatic. states pain has resolved. tolerating clears this AM. has had several episodes in the past but this is most severe. has not had colonoscopy due to social issues. denies Cp, SOB, fever, chills, N/V/C/D, passing feces or air in the urine OBJECTIVE: Last Vital Signs Temp Pulse Resp BP Pulse Ox 98.4 F 56 L 20 151/97 98 06/04/19 11:25 06/04/19 11:25 06/04/19 11:25 06/04/19 11:25 06/03/19 21:00 General NAD CV S1 S2 RRR no murmur/rub/gallop Lungs CTA B/L no wheezing/rales/rhonchi Abdomen soft slight tenderness LLQ on deep palpation. ND. obese ASSESSMENT AND PLAN: 44 year old Male with history of recurrent Diverticulitis, DM 2 (diet controlled ), s/p corneal transplant, presents with R sided abdominal pain and found to have diverculitis with possible colovesicular fistula 1. Acute Diverticulitis- clinically improved. tolerating clears. doubt this patient has fistula due to lack of symptoms with clean UA. more concerning for mass need to be ruled out with colonoscopy given frequent episodes this year and mother with ovarian cancer. will repeat Abdomen ct. advance diet as tolerated. will need colonoscopy after this acute episodes. stressed importance to patient. GI and surgery on board. 2. DM 2 - Uncontrolled. A1c 9.2. Previously on Metformin, now not on any anti- hyperglycemic meds. Maintain on Novolog sliding scale. Will need to resume Metformin on discharge with PCP follow up. 3. DVT Px - Heparin SQ
--- NOTE | 2019-06-04 17:43 | PN.GI ---
GI Progress Note Subjective: No acute events Abdominal pain much improved - Objective Vital Signs: Vital Signs Temperature 98.4 F 06/04/19 14:22 Pulse Rate 74 06/04/19 14:22 Respiratory Rate 19 06/04/19 14:22 Blood Pressure 146/90 06/04/19 14:22 O2 Sat by Pulse Oximetry (%) 98 06/03/19 21:00 Constitutional: Calm Eyes: No: Sclera Icterus Cardiovascular: Yes: Regular Rate and Rhythm Respiratory: Yes: CTA Bilaterally Gastrointestinal Inspection: No: Distention ...Auscultate: Yes: Normoactive Bowel Sounds ...Palpate: Yes: Soft, Tenderness (Minimal suprapubic tenderness to palpation). No: Guarding, Tenderness, Rebound ...Percussion: Yes: Tympanitic Edema: No (No LE edema) Neurological: Yes: Alert Labs: CBC, BMP 06/04/19 06:52 06/04/19 06:52 INR, PTT INR 1.28 (0.83-1.09) H 06/01/19 09:38 - ....Imaging Cat Scan: Report Reviewed, Image Reviewed Problem List - Problems (1) Sigmoid diverticulitis Assessment/Plan: Recurrent Acute sigmoid diverticulitis with last episode occurring 2 weeks ago Clinically improving IV Abx Clear liquids Will need colonoscopy in 6-8 weeks Surgery following. Discussion regarding elective outpatient resection if continued improvement Code(s): K57.32 - DVTRCLI OF LG INT W/O PERFORATION OR ABSCESS W/O BLEEDING
[2019-06-05] MEDS ORDERED: PIPERACILLIN/TAZOBACTAM 3.375 GM VIAL IVPB ONE ×3 (01:48→15:02)
[2019-06-05] MEDS ORDERED: DEXTROSE 5%-WATER - 50 ML IVPB ONE ×3 (01:48→15:02)
[2019-06-05] MEDS: PIPERACILLIN/TAZOB 3.375 GM 3.375 GM in DEXTROSE 5%-WATER - 50 ML IVPB SCH ×2 (02:41→10:55)
[2019-06-05] MEDS: HEPARIN NA (PORCINE) 5,000 UNITS/ML 1ML VIAL SQ SCH ×2 (02:44→10:56)
[2019-06-05] MEDS: LACTATED RINGERS SOLUTION 1,000 ML IV SCH (04:31)
[2019-06-05] MEDS: INSULIN SLIDING SCALE (NOVOLOG) 1 VIAL SQ SCH ×2 (06:36→12:37)
[2019-06-05] MEDS ORDERED: PT OWN MED DRAWER 7, Y5N ONE (06:40)
--- NOTE | 2019-06-05 08:12 | PN ---
Progress Note (short form) - Note Progress Note: 44yo M h/o acute diverticulitis, pt seen and examined at bedside. Pt states his symptoms are completely resolved. Denies abd pain, n/v, fever, chills, diarrhea. Pt states having regular BM and tolerating PO. Pt scheduled for repeat CT abd pelvis this am. Last Vital Signs Temp Pulse Resp BP Pulse Ox 98.7 F 72 20 121/61 98 06/05/19 05:52 06/05/19 05:52 06/05/19 05:52 06/05/19 05:52 06/04/19 11:30 PE: Gen: A&O x 3 Resp: breathing comfortably Abd: soft, nondistended, nontender Ext: no edema Problem List - Problems (1) Sigmoid diverticulitis Assessment/Plan: Plan -plan for pt to have repeat CT abd/pel this am, if improved, can adv diet and discharge pt home. -emphasized the importance to pt of following up with surgery, as outpatient sigmoid resection, may be necessary -will follow up imaging later today. Code(s): K57.32 - DVTRCLI OF LG INT W/O PERFORATION OR ABSCESS W/O BLEEDING
[2019-06-05 08:13] LABS: BASO % 1.2 % (0-2.0); HEMATOCRIT 39.1 % (35.4-49); HEMOGLOBIN 13.1 GM/dL (11.7-16.9); LYMPH % 25.2 % (8-40); MCH 28.2 pg (25.7-33.7); MCHC 33.5 g/dl (32.0-35.9); MEAN CELL VOLUME 84.3 fl (80-96); MEAN PLT VOLUME 8.5 fl (7.5-11.1); MONO % 7.6 % (3.8-10.2); PLATELET COUNT 348 K/MM3 (134-434); RBC 4.63 M/mm3 (4.00-5.60); RDW 14.2 % (11.9-15.9); WHITE BLOOD COUNT 10.1 K/mm3 (4.0-10.0)
[2019-06-05 08:34] LABS: BLOOD UREA NITROGEN 6.2 mg/dL (7-18); CALCIUM 8.5 mg/dL (8.5-10.1); CREATININE 0.9 mg/dL (0.55-1.3); POTASSIUM 4.4 mmol/L (3.5-5.1)
--- NOTE | 2019-06-05 11:05 | PN ---
Progress Note, Physician History of Present Illness: improving wbc trending down - Current Medication List Current Medications: Active Medications Acetaminophen (Tylenol -) 650 mg PO Q4H PRN PRN Reason: PAIN LEVEL 4 - 6 Heparin Sodium (Porcine) (Heparin -) 5,000 unit SQ Q8H-IV KRISTEN Last Admin: 06/05/19 10:56 Dose: Not Given Piperacillin Sod/Tazobactam (Sod 3.375 gm/ Dextrose) 50 mls @ 100 mls/hr IVPB Q6H-IV KRISTEN Last Admin: 06/05/19 10:55 Dose: 100 mls/hr Insulin Aspart (Novolog Vial Sliding Scale -) 1 vial SQ [facility]; Protocol Last Admin: 06/05/19 06:36 Dose: Not Given Ketorolac Tromethamine (Toradol Injection -) 30 mg IVPUSH Q8H PRN PRN Reason: PAIN LEVEL 4 - 6 Stop: 06/07/19 10:16 Last Admin: 06/03/19 21:25 Dose: 30 mg Ondansetron HCl (Zofran Injection) 4 mg IVPUSH Q6H PRN PRN Reason: NAUSEA - Objective Vital Signs: Vital Signs Temperature 98.7 F 06/05/19 05:52 Pulse Rate 72 06/05/19 05:52 Respiratory Rate 20 06/05/19 05:52 Blood Pressure 121/61 06/05/19 05:52 O2 Sat by Pulse Oximetry (%) 98 06/04/19 11:30 Constitutional: Yes: No Distress, Calm Cardiovascular: Yes: S1, S2 Respiratory: Yes: Regular, CTA Bilaterally Gastrointestinal: Yes: Soft, Hypoactive Bowel Sounds Musculoskeletal: Yes: WNL Extremities: Yes: WNL Neurological: Yes: Alert, Oriented Psychiatric: Yes: Alert, Oriented Labs: CBC, BMP 06/05/19 07:25 06/05/19 07:25 INR, PTT INR 1.28 (0.83-1.09) H 06/01/19 09:38 Assessment/Plan Problem List - Problems (1) Sigmoid diverticulitis Code(s): K57.32 - DVTRCLI OF LG INT W/O PERFORATION OR ABSCESS W/O BLEEDING Assessment/Plan 44 y.o. male with PMH of DM (not on medication) and Diverticulitis presents with c/o severe abd pain and constipation x 5 days Acute sigmoid diverticulitis Possible colovesicular fistula DM -- continue Zosyn --monitor abd pain
--- NOTE | 2019-06-05 13:08 | PN ---
Teaching Attending Note Name of Resident: Odessa Bonner ATTENDING PHYSICIAN STATEMENT I saw and evaluated the patient. I reviewed the resident's note and discussed the case with the resident. I agree with the resident's findings and plan as documented. SUBJECTIVE:asymptomatic. tolerating diet. having regular BM. denies CP, SOB, fever,c [place], N/V/C/D OBJECTIVE: Last Vital Signs Temp Pulse Resp BP Pulse Ox 98.7 F 72 20 121/61 98 06/05/19 05:52 06/05/19 05:52 06/05/19 05:52 06/05/19 05:52 06/04/19 11:30 General NAD CV S1 S2 RRR no murmur/rub/gallop Lungs CTA B/L no wheezing/rales/rhonchi Abdomen soft NT/ND. obese ASSESSMENT AND PLAN: 44 year old Male with history of recurrent Diverticulitis, DM 2 (diet controlled ), s/p corneal transplant, presents with R sided abdominal pain and found to have diverculitis with possible colovesicular fistula 1. Acute Diverticulitis- clinically improved. tolerating diet. plan to do CT today evaluate for questionable fistula. if negative can d/c home and follow up with GI as outpatient for colonoscopy. stressed importance of GI follow up and testing 2. DM 2 - Uncontrolled. A1c 9.2. Previously on Metformin, now not on any anti- hyperglycemic meds. Maintain on Novolog sliding scale. Will need to resume Metformin on discharge with PCP follow up. 3. DVT Px - Heparin SQ 4. d/c home pending CT results
[2019-06-05 14:53] VITALS: BP 140/84; PULSE 57; TEMP 97.7
--- NOTE | 2019-06-05 18:49 | DS ---
Physical Exam: SUBJECTIVE: Patient seen and examined. He reports feeling much better. He was tolerating clear liquids overnight. No abdominal pain, nausea, vomiting, diarrhea. OBJECTIVE: Vital Signs Period Temp Pulse Resp BP Sys/Ferrari Pulse Ox Last 24 Hr 97.7 F-98.7 F 57-72 20-20 121-140/61-84 PHYSICAL EXAM GENERAL: The patient is awake, alert, and fully oriented, in no acute distress. HEAD: Normal with no signs of trauma. EYES: PERRL, extraocular movements intact, sclera anicteric, conjunctiva clear. No ptosis. ENT: Ears normal, nares patent, moist mucous membranes. NECK: Trachea midline, full range of motion, supple. LUNGS: Breath sounds equal, clear to auscultation bilaterally, no wheezes, no crackles, no accessory muscle use. HEART: Regular rate and rhythm, S1, S2 without murmur, rub or gallop. ABDOMEN: Soft, RLQ tender to deep palpation, nondistended, normoactive bowel sounds EXTREMITIES: 2+ pulses, warm, well-perfused, no edema. NEUROLOGICAL: Cranial nerves II through XII grossly intact. Normal speech, gait not observed. PSYCH: Normal mood, normal affect. SKIN: Warm, dry, normal turgor, no rashes or lesions noted. LABS Laboratory Results - last 24 hr 06/04/19 06/05/19 06/05/19 21:02 06:35 07:25 WBC 10.1 H RBC 4.63 Hgb 13.1 Hct 39.1 MCV 84.3 MCH 28.2 MCHC 33.5 RDW 14.2 Plt Count 348 MPV 8.5 Absolute Neuts (auto) 5.9 Neutrophils % 59.0 Lymphocytes % 25.2 Monocytes % 7.6 Eosinophils % 7.0 H Basophils % 1.2 Nucleated RBC % 0 Sodium Potassium Chloride Carbon Dioxide Anion Gap BUN Creatinine Est GFR (CKD-EPI)AfAm Est GFR (CKD-EPI)NonAf POC Glucometer 82 126 Random Glucose Calcium C-Reactive Protein 06/05/19 06/05/19 07:25 14:06 WBC RBC Hgb Hct MCV MCH MCHC RDW Plt Count MPV Absolute Neuts (auto) Neutrophils % Lymphocytes % Monocytes % Eosinophils % Basophils % Nucleated RBC % Sodium 141 Potassium 4.4 Chloride 107 Carbon Dioxide 30 Anion Gap 5 L BUN 6.2 L Creatinine 0.9 Est GFR (CKD-EPI)AfAm 121.67 Est GFR (CKD-EPI)NonAf 104.98 POC Glucometer 140 Random Glucose 117 H Calcium 8.5 C-Reactive Protein 3.7 H HOSPITAL COURSE: Mr. Shah is a 44yo male with hx of DM not on medication who presents with abdominal pain and constipation x 5 days. He has hx of diverticulitis. CT positive for acute sigmoid diverticulitis. Pt treated with given [address] showed improvement. Pt is stable for discharge. Advised to follow up with GI and surgery. Sent home on Augmentin and metformin. Told to follow up with PCP for metformin. A1C 9.2 Date of Admission:06/01/19 Date of Discharge: 06/05/19 Minutes to complete discharge: 35 Discharge Summary Problems reviewed: Yes Reason For Visit: DIVERTICULITIS OF SIGMOID COLON Condition: Stable - Instructions Diet, Activity, Other Instructions: Hospital Visit: You were admitted to the hospital for abdominal pain and were found to have diverticulitis. Imaging showed diverticulitis and an area of inflammation between your colon and bladder. The urologist here said there was no need for workup in the hospital. You were given IV fluids and antibiotics for the diverticulitis, and you improved. Follow up imaging showed improvement and you were able to tolerate diet. You are being discharged today. You hemoglobin A1C is 9.2. You were on metformin in the past for your diabetes. You will need to start that medication again and follow up with your primary care doctor to make further adjustments to your diabetes meds. Medications: Metformin 500mg once a day. Take with dinner to avoid GI upset. Continue to take Augmentin (Antibiotic) 875mg twice a day for the next 14 days Follow up with the followin. Your primary care provider in the next week to discuss your diabetes and metformin dosage. 2. Dr. Elmore, surgery, in the next 1-2 weeks to see if you will need surgery to remove part of the colon. 3. Dr. Espinoza, gastroenterology, in the next 3-4 weeks. You will need a colonoscopy. 4. Dr. Dickinson, urology, in the next month to discuss your urinary discomfort. Other instructions: Please maintain a Low-Fiber diet until you follow up with surgery. Return to the emergency room if you experience worsening abdominal pain or pain with urination, dark colored urine, bloody bowel movements or black tarry stool , chest pain, shortness of breath, nausea, or vomiting. Referrals: Low Elmore MD [Staff Physician] - Fransisco Dickinson MD [Staff Physician] - Richelle Espinoza DO [Staff Physician] - Disposition: HOME - Home Medications Comprehensive Discharge Medication List: Ambulatory Orders Amox-Tr/K Cl [Augmentin - 875Mg Tablet] 1 tab PO BID #28 tablet 06/05/19 metFORMIN XR [Glucophage Xr -] 500 mg PO DAILY 30 Days #30 tab.sr.24h 06/05/19 This patient is new to me today: Yes Date on this admission: 06/05/19 Emergency Visit: No Critical Care patient: No - Discharge Referral Referred to [facility] Med [facility] No ATTENDING PHYSICIAN STATEMENT I saw and evaluated the patient. I reviewed the resident's note and discussed the case with the resident. I agree with the resident's findings and plan as documented. SUBJECTIVE: OBJECTIVE: ASSESSMENT AND PLAN:
== END 2019-06-05 17:56 | disposition home or self-care (01) | DRG 244 ==
LOC: JER 09:03 → JERBED 12:11 → J5S 12:58
PROVIDERS: ATTEND Internal Medicine
DX: K57.32 Diverticulitis of large intestine without perforation or abscess without bleeding (principal); K59.09 Other constipation; R00.0 Tachycardia, unspecified; F17.210 Nicotine dependence, cigarettes, uncomplicated; R30.0 Dysuria; R10.31 Right lower quadrant pain; F12.90 Cannabis use, unspecified, uncomplicated; D72.829 Elevated white blood cell count, unspecified; N32.1 Vesicointestinal fistula; E11.65 Type 2 diabetes mellitus with hyperglycemia; R61 Generalized hyperhidrosis; E66.8 Other obesity; Z68.41 Body mass index [BMI] 40.0-44.9, adult; Z72.89 Other problems related to lifestyle
CPT/HCPCS: 36415; 71045-TC-FY; 74177-TC; 80048; 80053; 81003; 82272; 82550; 82962; 83036; 83605; 83735; 84100; 84484; 85025; 85610; 85730; 86140; 87040; 87086; 93005; 93010; 99284-25; J0131; J1644; J7030; Q9967